=== PATIENT | female | born 1970 | race American Indian/Alaskan Native ===

== ENCOUNTER 2020-10-04 10:21 | Emergency (ER) | payer MEDICAID, OTHER, SELFPAY ==
[2020-10-04 10:23] VITALS: BP 147/76; PULSE 89; RESP 14; TEMP 36.8; O2SAT 96; BMI 28.0
--- NOTE | 2020-10-04 10:28 | DI.RAD.S_ITS ---
PROCEDURE: XR ANKLE RT MIN 3V INDICATIONS: rolled ankle TECHNIQUE: 3 views of the ankle were acquired. COMPARISON: None. FINDINGS: Bones: Fine bone detail is obscured by overlying dressing/splint/cast material. Ankle mortise is normally aligned. No suspicious bony lesions. Soft tissues: No tibiotalar joint effusion. Achilles tendon appears normal. IMPRESSION: Very limited evaluation due to overlying dressing/splint/cast material. No definite trauma found. Proper follow-up plain film imaging today likely should be obtained unless clinically not indicated. Dictated by: Fabien Reyes M.D. on 10/04/2020 at 10:41 Approved by: Fabien Reyes M.D. on 10/04/2020 at 10:43
--- NOTE | 2020-10-04 10:47 | PC.NURSE ---
Pt states she was just seen at the [facility] and was dx with a sprained ankle and was fitted for a gel splint and given crutches. Pt states that her ankle is too painful and the splint is not helping and wants an xray. SLIP COVER SEWER intact distal to injury
--- NOTE | 2020-10-05 10:39 | ED.LOWEXIN ---
HPI - Extremity Injury (Lower) General Chief Complaint: Extremity Injury, Lower Stated Complaint: RT FOOT PAIN, POSS BREAK Time Seen by Provider: 10/04/20 11:04 Source: patient Mode of arrival: Wheelchair Limitations: no limitations History of Present Illness HPI Narrative: 50-year-old woman with a history of recurrent ankle injuries presents after stumbling over uneven ground in her yd and having an inversion injury to the right ankle with significant pain. She comes in with an air splint in place some mild swelling to the ankle in unable to bear weight. Related Data Home Medications Medication Instructions Recorded Confirmed ESOMEPRAZOLE SODIUM (NEXIUM) mg PO QDAY #0 03/06/12 oxycodone 10 mg tablet,crush 10 mg PO #0 03/06/12 resistant,extended release 12 hr (OxyContin) Previous Rx's Medication Instructions Recorded ondansetron 4 mg disintegrating 4 mg SUBLINGUAL Q4HP PRN #15 odt 01/09/ tablet (Zofran ODT) Allergies Allergy/AdvReac Type Severity Reaction Status Date / Time iodine [IODINE] Allergy Severe ANXIETY, Verified 10/04/20 10:28 FLUSHING tramadol [TRAMADOL] Allergy Severe HIVES Verified 10/04/20 10:28 codeine [CODEINE] Allergy Intermediate NAUSEA Verified 10/04/20 10:28 hydromorphone [From DILAUDID] Allergy Intermediate NAUSEA Verified 10/04/20 10:28 meloxicam [From MOBIC] Allergy Intermediate NAUSEA Verified 10/04/20 10:28 Sulfa (Sulfonamide Allergy Intermediate HIVES Verified 10/04/20 10:28 Antibiotics) [SULFA (SULFONAMIDE ANTIBIOTICS)] tetracycline [TETRACYCLINE] Allergy Intermediate NAUSEA Verified 10/04/20 10:28 Review of Systems Review of Systems Narrative: Pertinent positive and negative findings as per HPI Remainder of review of systems is otherwise unremarkable for Constitutional: Fevers, chills, weakness ENT: No sore throat, neck pain, ear pain CV: Chest pain, palpitations, Respiratory: Cough, wheeze, dyspnea GI: Nausea, vomiting, diarrhea, : Dysuria, hematuria, Patient History Social History Smoking Status: Unknown if ever smoked Smoking Status: Unknown if ever smoked alcohol intake frequency: holidays/special occasions only Substance Use Type: marijuana Exam Narrative Exam Narrative: General: Alert appropriate in no acute distress Respiratory: Able to speak in full sentences, no obvious respiratory distress Skin: No obvious rashes, warm and dry Neurologic: Grossly intact no obvious asymmetries or abnormalities Psych: appropriate insight and affect, cooperative Extremity: Some mild tenderness to the lateral aspect of the ankle with some swelling. No ecchymosis, abrasion and no bony point tenderness neurovascularly intact. No tenderness along the fibular head, knee or upper leg. Initial Vital Signs Initial Vital Signs: Vital Signs Temperature 98.3 F 10/04/20 10:23 Pulse Rate 89 10/04/20 10:23 Respiratory Rate 14 10/04/20 10:23 Blood Pressure 147/76 H 10/04/20 10:23 Pulse Oximetry 96 10/04/20 10:23 Procedures Orthopedic Splinting/Casting Right ankle injury: Side: right Lower Extremity Injury Location: ankle Lower Extremity Immobilizer: Blayne wrap Post splinting neuro exam: intact Post splinting vascular exam: intact Placed by: Provider MDM - Extremity Injury (Lower) Imaging Data X-ray ankle: Radiologist's Impression: FINDINGS: Bones: Fine bone detail is obscured by overlying dressing/splint/cast material. Ankle mortise is normally aligned. No suspicious bony lesions. Soft tissues: No tibiotalar joint effusion. Achilles tendon appears normal. IMPRESSION: Very limited evaluation due to overlying dressing/splint/cast material. No definite trauma found. Proper follow-up plain film imaging today likely should be obtained unless clinically not indicated. Dictated by: Fabien Reyes M.D. on 10/04/2020 at 10:41 MDM Narrative Medical decision making narrative: 50-year-old woman with inversion ankle injury no other significant complaints. X-rays are unremarkable. Blayne wrap is applied air splint is reapplied and patient has her own crutches. Recommended Tylenol for pain control elevation and ice. She will follow-up with her primary care provider. She is safe for home discharge Discharge Plan Departure Patient Disposition: Home Clinical Impression: Ankle sprain and strain Instructions: DI for Ankle Sprain Activity Restrictions/Additional Instructions: Thank you for coming in today Your x-ray does not show any broken bones. With the swelling, the pain and the history you clearly have sprained your ankle. I have placed an Blayne wrap on to help with comfort and I would recommend continuing to use the air brace that you have as well as the crutches that you have. Keep the foot elevated, icing can be helpful and Tylenol should help with pain. I hope you heal quickly Prescriptions: No Action ESOMEPRAZOLE SODIUM (NEXIUM) PO QDAY Qty: 0 RF: 0 oxycodone [OxyContin] 10 MG tablet,oral only,ext.rel.12 hr 10 mg PO Qty: 0 RF: 0 ondansetron [Zofran ODT] 4 MG tablet,disintegrating 4 mg Sublingual Q4HP PRNQty: 15 RF: 0 Referrals: Ting Cardozo PA-C [Primary Care Provider] -
== END 2020-10-04 11:34 | disposition home or self-care (01) ==
PROVIDERS: Emergency Provider Emergency Medicine; Family Provider Physician Assistant; PCP Physician Assistant
DX: S93.401A Sprain of unspecified ligament of right ankle, initial encounter (principal); S96.911A Strain of unspecified muscle and tendon at ankle and foot level, right foot, initial encounter; W19.XXXA Unspecified fall, initial encounter
CPT/HCPCS: 73610; 99281; 99283

== ENCOUNTER → 2022-01-07 15:33 | Outpatient (CLI) | payer MEDICAID, OTHER, SELFPAY ==
--- NOTE | 2022-01-07 15:35 | DI.RAD.S_ITS ---
PROCEDURE: XR LUMBAR SPINE 2-3V INDICATIONS: Strain of muscle, fascia and tendon of lower back, subsequen TECHNIQUE: 3 views of the lumbar spine were acquired. COMPARISON: [facility], CT, ABDOMEN/PELVIS WITHOUT CONTRAS, 01/10/2016, 15:46. FINDINGS: Bones: 5 [id number] vertebrae are present. There is normal bony alignment. No vertebral body compression fractures. No suspicious bony lesions. Soft tissues: Overlying bowel gas pattern is normal. No suspicious soft tissue calcifications. Cholecystectomy clips. IMPRESSION: No compression fracture. Dictated by: Matt Mary M.D. on 01/07/2022 at 17:45 Approved by: Matt Mary M.D. on 01/07/2022 at 17:47
--- NOTE | 2022-01-07 15:35 | DI.RAD.S_ITS ---
PROCEDURE: XR THORACIC SPINE 3V INDICATIONS: Strain of muscle, fascia and tendon of lower back, subsequen TECHNIQUE: 3 views of the thoracic spine were acquired. COMPARISON: [facility], , THORACIC SPINE 2 VIEWS, 11/11/2006, 1:04. FINDINGS: Bones: No fractures or dislocations. No suspicious bony lesions. Mild degenerative change in the lower cervical spine is seen. Tiny thoracic spine vertebral body osteophytes. 12 pairs of ribs are noted, and appear intact where visualized. Humerus hardware. Soft tissues: No paravertebral stripe thickening. Cholecystectomy clips. IMPRESSION: Minimal to mild degenerative change in the thoracic spine. Dictated by: Matt Mary M.D. on 01/07/2022 at 17:43 Approved by: Matt Mary M.D. on 01/07/2022 at 17:45
== END ==
PROVIDERS: Family Provider Physician Assistant; PCP Physician Assistant; Referring Provider Family Medicine; Visit Provider Family Medicine
DX: S39.012D Strain of muscle, fascia and tendon of lower back, subsequent encounter (principal); M47.814 Spondylosis without myelopathy or radiculopathy, thoracic region; X58.XXXA Exposure to other specified factors, initial encounter
CPT/HCPCS: 72072; 72100

== ENCOUNTER 2022-02-27 12:13 | Emergency (ER) | payer MEDICAID, OTHER, SELFPAY ==
[2022-02-27 12:20] VITALS: BP 132/73; PULSE 80; RESP 18; TEMP 36.6; O2SAT 98; BMI 29.0
[2022-02-27 12:49] LABS: Add Manual Diff / Slide Review NO; Basophils Absolute Auto 100 /uL (0-100); Basophils Percent Auto 0.9 % (0-2); Eosinophils Absolute Auto 0 /uL (0-450); Eosinophils Percent Auto 0.6 % (2-4); Hemoglobin 14.9 g/dL (12.0-16.0); Lymphocytes Absolute Auto 1800 /uL (1100-4500); Lymphocytes Percent Auto 27.9 % (25-40); Mean Corpuscular HGB Conc 33.1 % (30-36); Mean Corpuscular Volume 87.6 fL (80-100); Monocytes Absolute Auto 500 /uL (0-900); Monocytes Percent Auto 7.6 % (3-14); Neutrophils Absolute Auto 4000 /uL (1500-7000); Platelet Count 297 X10^3/uL (150-400); Red Blood Cell Count 5.14 X10^6/uL (4.0-5.2); Red Cell Distribution Width 13.9 % (11.6-14.8); White Blood Cell Count 6.3 X10^3/uL (4.5-11.0)
--- NOTE | 2022-02-27 12:49 | DI.CT.S_ITS ---
PROCEDURE: CT ABDOMEN PELVIS W CON INDICATIONS: rlq pain TECHNIQUE: After the administration of oral and IV contrast, axial sections were acquired from the lung bases to the pubic symphysis. Coronal and sagittal reformats were performed. For radiation dose reduction, the following was used: automated exposure control, adjustment of mA and/or kV according to patient size. COMPARISON: [facility], CT, ABDOMEN/PELVIS WITH CONTRAST, 03/07/2011, 1:02. FINDINGS: Image quality: Excellent. Lung bases: Unremarkable. Small hiatal hernia. Mild concentric thickening at the gastroesophageal junction. Heart: No significant findings. ABDOMEN: Liver: Mild hepatic steatosis. Liver is normal in size. Gallbladder: Surgically removed. Biliary ducts: Unremarkable. Pancreas: Unremarkable. Spleen: Unremarkable. Adrenal Glands: Unremarkable. Kidneys and Ureters: Normal size and symmetrical enhancement. There is a cortical scar in right kidney. No stones or hydronephrosis. Stomach and Bowel: Appendix is normal. Stomach, small bowel loops, and colon are normal in caliber. There is mild diffuse colonic wall thickening suggesting colitis. Peritoneum: No abnormal intraperitoneal fluid. No free air. Ventral Wall: No hernia. Abdominal Nodes: No retroperitoneal or mesenteric adenopathy by size criteria. Vessels: Aorta and inferior vena cava are normal in size. PELVIS: Pelvic Organs: Normal uterus. No adnexal mass. No pathological free-fluid in pelvis.. Bladder: Unremarkable. Pelvic Nodes: No enlarged lymph nodes. Miscellaneous: No inguinal hernias are seen. Bones: Unremarkable. Mild degenerative disc disease in the lower lumbar spine. IMPRESSION: 1. Normal appendix. 2. Mild diffuse colonic wall thickening consistent with colitis. Etiologies may be inflammatory bowel disease or infection. Recommend clinical correlation and follow-up. 3. Small hiatal hernia. Mild concentric thickening at the gastroesophageal junction may be secondary to chronic gastroesophageal reflux. If clinically indicated, esophagram may be helpful. 4. Hepatic steatosis. Dictated by: Pravin Oscar M.D. on 02/27/2022 at 12:53 Approved by: Pravin Oscar M.D. on 02/27/2022 at 12:59
--- NOTE | 2022-02-27 12:51 | ED.ABDPAIN ---
HPI - Abdominal Pain General Chief Complaint: Abdominal Pain Stated Complaint: poss appendicitis,vominting Time Seen by Provider: 02/27/22 12:49 Source: patient Mode of arrival: Ambulatory History of Present Illness HPI narrative: Patient is a 51-year-old female without pertinent past medical history presenting today with right lower quadrant pain. She says it has been ongoing for the last 4-5 days. It is persistent sharp and stabbing. She thought it was related to her back pain but it does not seem to be rate eating. She has had decrease in appetite. With mild nausea and vomiting. No ongoing back pain. Tender right lower quadrant nonradiating no flank pain. Related Data Home Medications Medication Instructions Recorded Confirmed ESOMEPRAZOLE SODIUM (NEXIUM) mg PO QDAY ##0 03/06/12 oxycodone 10 mg tablet,crush 10 mg PO ##0 03/06/12 resistant,extended release 12 hr (OxyContin) Previous Rx's Medication Instructions Recorded ondansetron 4 mg disintegrating 4 mg sublingual Q4HP PRN ##15 01/10/16 tablet (Zofran ODT) ciprofloxacin HCl 500 mg tablet 500 mg PO BID #14 tabs 02/27/22 (Cipro) hydrocodone 5 mg-acetaminophen 325 1 tab PO Q6H PRN pain #10 tabs 02/27/22 mg tablet metronidazole 500 mg tablet 500 mg PO Q8H 7 days #21 tabs 02/27/22 Allergies Allergy/AdvReac Type Severity Reaction Status Date / Time iodine [IODINE] Allergy Severe ANXIETY, Verified 02/27/22 12:19 FLUSHING tramadol [TRAMADOL] Allergy Severe HIVES Verified 02/27/22 12:19 codeine [CODEINE] Allergy Intermediate NAUSEA Verified 02/27/22 12:19 hydromorphone [From DILAUDID] Allergy Intermediate NAUSEA Verified 02/27/22 12:19 meloxicam [From MOBIC] Allergy Intermediate NAUSEA Verified 02/27/22 12:19 Sulfa (Sulfonamide Allergy Intermediate HIVES Verified 02/27/22 12:19 Antibiotics) [SULFA (SULFONAMIDE ANTIBIOTICS)] tetracycline [TETRACYCLINE] Allergy Intermediate NAUSEA Verified 02/27/22 12:19 ibuprofen AdvReac Verified 02/27/22 12:19 Review of Systems Review of Systems ROS Unobtainable: All systems reviewed & are unremarkable except as noted in HPI and below Patient History Social History Smoking Status: Former smoker Smoking Status: Former smoker alcohol intake frequency: holidays/special occasions only Substance Use Type: marijuana Exam Initial Vital Signs Initial Vital Signs: Vital Signs Temperature 97.9 F 02/27/22 12:20 Pulse Rate 80 02/27/22 12:20 Respiratory Rate 18 02/27/22 12:20 Blood Pressure 132/73 02/27/22 12:20 Pulse Oximetry 98 02/27/22 12:20 Oxygen Delivery Method 02/27/22 12:20 GENERAL: Alert pleasant 51-year-old female appears mildly uncomfortable and in no acute distress. HEENT: Head atraumatic,EOMI, pupils reactive, face symmetric, moist mucous membranes CARDIOVASCULAR: Regular rate and rhythm without murmurs, rubs or gallops. RESPIRATORY: Breath sounds equal bilaterally, no wheezes rales or rhonchi. ABDOMEN: Soft, tender right lower quadrant pain no guarding or rebound no right upper quadrant pain : No CVA tenderness EXTREMITIES: Normal range of motion, no clubbing or edema. Neurovascularly intact NEUROLOGICAL: Alert and oriented x4.N SKIN: Warm, dry, no laceration, no petechiae, no rashes or lesions. Course Orders Ordered: ED Orders 02/27/22 12:26 EKG-12 Lead Stat 02/27/22 12:33 Complete Blood Count AUTO DIFF Stat Comprehensive Metabolic Panel Stat Lactate (Lactic Acid) Stat Lipase Stat 02/27/22 12:49 CT abdomen pelvis w con Stat Discontinued Medications Acetaminophen (Acetaminophen 325 Mg Tablet) 975 mg PO NOW ONE Stop: 02/27/22 13:34 Last Admin: 02/27/22 13:42 Dose: 975 mg Documented By: JULIO Ondansetron HCl (Ondansetron 4 Mg/2 Ml Inj) 4 mg IV NOW PRN PRN Reason: Nausea And Vomiting Last Admin: 02/27/22 13:43 Dose: 4 mg Documented By: JULIO Oxycodone HCl (Oxycodone Ir 5 Mg Tablet) 5 mg PO NOW ONE Stop: 02/27/22 14:20 Last Admin: 02/27/22 14:28 Dose: 5 mg Documented By: JULIO Vital Signs Vital signs: Vital Signs - 8 hr 02/27/22 12:20 02/27/22 13:12 Temperature 97.9 F Pulse Rate 80 77 Respiratory Rate 18 Blood Pressure 132/73 132/75 Pulse Oximetry 98 99 Oxygen Delivery Method Room Air Room Air MDM - Abdominal Pain Lab Data Result diagrams: 02/27/22 12:33 02/27/22 12:33 Labs: Lab Results 02/27/22 02/27/22 02/27/22 Range/Units 12:33 12:33 12:33 WBC 6.3 (4.5-11.0) X10^3/uL RBC 5.14 (4.0-5.2) X10^6/uL Hgb 14.9 (12.0-16.0) g/dL Hct 45.0 (36-46) % MCV 87.6 (80-100) fL MCH 29.0 (26-34) PG MCHC 33.1 (30-36) % RDW 13.9 (11.6-14.8) % Plt Count 297 (150-400) X10^3/uL Neut % (Auto) 63.0 (50-75) % Lymph % (Auto) 27.9 (25-40) % [place] % (Auto) 7.6 (3-14) % Eos % (Auto) 0.6 L (2-4) % Baso % (Auto) 0.9 (0-2) % Neut # (Auto) 4000 (4075-6400) /uL Lymph # (Auto) 1800 (7184-4834) /uL [place] # (Auto) 500 (0-900) /uL Eos # (Auto) 0 (0-450) /uL Baso # (Auto) 100 (0-100) /uL Sodium 142 (137-145) mmol/L Potassium 3.7 (3.4-5.1) mmol/L Chloride 105 (98-107) mmol/L Carbon Dioxide 26 (22-32) mmol/L BUN 12 (7-17) mg/dL Creatinine 0.80 (0.52-1.04) mg/dL Estimated GFR > 60 (>60) mL/min BUN/Creatinine Ratio 15.0 (6-22) Glucose 119 H (70-100) mg/dL Lactate 1.5 (0.7-2.1) mmol/L Calcium 9.4 (8.4-10.2) mg/dL Total Bilirubin 0.7 (0.2-1.3) mg/dL AST 27 (14-36) IU/L ALT 17 (<35) IU/L Alkaline Phosphatase 138 H (38-126) U/L Total Protein 8.4 H (6.3-8.2) g/dL Lipase 206 (23-300) U/L Point of care testing: Urine Dip Bedside Urine Glucose Negative Bedside Urine Bilirubin - Negative Bedside Urine Ketone - Negative Urine Specific [place] 1.015 Bedside Urine Occult Blood - Negative Bedside Urine pH 6.0 Bedside Urine Protein - Negative Bedside Urine Urobilinogen - Negative Bedside Urine Nitrite - Negative Bedside Urine Leukocytes - Negative Esterase Imaging Data CT scan - abdomen/pelvis: Radiologist's Impression: Blane Shetty MR#: [id number] : 1970 Acct:[id number] Age/Sex: 51 / F Date of Service: 02/27/22 Loc: ED Accession Number: [id number] ?? Procedure: CT abdomen pelvis w con Ordering Provider: Ashley Zarco D.O. PROCEDURE:? CT ABDOMEN PELVIS W CON ? INDICATIONS:? rlq pain ? TECHNIQUE:? After the administration of oral and IV contrast, axial sections were acquired from the lung bases to the pubic symphysis.? Coronal and sagittal reformats were performed.? For radiation dose reduction, the following was used:? automated exposure control, adjustment of mA and/or kV according to patient size. ? COMPARISON:? [facility], CT, ABDOMEN/PELVIS WITH CONTRAST, 03/07/2011, 1:02. ? FINDINGS:? Image quality:? Excellent.? ? Lung bases:? Unremarkable.? Small hiatal hernia.? Mild concentric thickening at the gastroesophageal junction. ? Heart:? No significant findings. ? ? ABDOMEN: Liver:? Mild hepatic steatosis.? Liver is normal in size.? ? Gallbladder:? Surgically removed.? ? Biliary ducts:? Unremarkable.? ? Pancreas:? Unremarkable.? ? Spleen:? Unremarkable.? ? Adrenal Glands:? Unremarkable.? ? Kidneys and Ureters:? Normal size and symmetrical enhancement.? There is a cortical scar in right kidney.? No stones or hydronephrosis.? ? ? Stomach and Bowel:? Appendix is normal.? Stomach, small bowel loops, and colon are normal in caliber.? There is mild diffuse colonic wall thickening suggesting colitis. Peritoneum:? No abnormal intraperitoneal fluid.? No free air.? ? Ventral Wall: ? No hernia.? Abdominal Nodes:? No retroperitoneal or mesenteric adenopathy by size criteria.? Vessels:? Aorta and inferior vena cava are normal in size.? ? PELVIS: Pelvic Organs:? Normal uterus.? No adnexal mass.? No pathological free-fluid in pelvis..? ? Bladder:? Unremarkable.? ? Pelvic Nodes: No enlarged lymph nodes.? Miscellaneous: No inguinal hernias are seen. ? ? ? Bones:? Unremarkable.? ? Mild degenerative disc disease in the lower lumbar spine. ? ? IMPRESSION:? ? 1.? Normal appendix. 2. Mild diffuse colonic wall thickening consistent with colitis.? Etiologies may be inflammatory bowel disease or infection.? Recommend clinical correlation and follow-up.? 3. Small hiatal hernia.? Mild concentric thickening at the gastroesophageal junction may be secondary to chronic gastroesophageal reflux.? If clinically indicated, esophagram may be helpful. 4.? Hepatic steatosis.? ? ? Dictated by: Pravin Oscar M.D. on 02/27/2022 at 12:53 ? ? ECG Data Interpretation: Normal sinus rhythm rate 70 OK interval 124 QRS [address] changes no T-wave inversions similar to previous in 2012 MDM Narrative Medical decision making narrative: Patient is a healthy 51-year-old female who presents with ongoing right lower quadrant pain for 3 days. She does not have any leukocytosis or fever but is quite tender on palpation. CT does show colitis inflammatory versus infectious. We did discuss antibiotics versus watchful waiting. At this time patient would like to continue with an antibiotic course along with pain medication. She thinks that she is tolerated hydrocodone before although allergy medication suggest otherwise. She would like to try it again. She thinks it was a combination of previous meds. She is not septic. She overall appears comfortable. She was not given Toradol due to allergy list. She was given 975 mg of Tylenol and then an oxycodone to help with more pain. MDM * differential diagnosis includes but not limited to: Appendicitis diverticulitis bowel obstruction perforation renal stone ovarian torsion, abdominal mass * Prior records reviewed: Previous ED visit ankle sprain * My lab interpretation: See discussion above * My imaging interpretation: CT as above * Clinical Decision Rules/Scores evaluated: None * Independent discussions with: None * Social Considerations: None * Shared Decision Making: in patient * diagnosis: colitis *Disposition: see below, along with detailed discharge instructions that have been reviewed with patient as well as indications for ED re-evaluation and additional outpatient follow up Discharge Plan Departure Patient Disposition: Home Clinical Impression: Colitis Instructions: DI for Colitis Activity Restrictions/Additional Instructions: *You have been diagnosed with colitis *What to do: At this time we will put you on a short course of antibiotics and pain medication. No evidence of appendicitis. Recommend staying hydrated with fluids such as Gatorade or Gatorade like product. May advance diet as tolerated *Continue to take medications as directed --> SENT TO [facility] Cipro 500 mg twice a day for 7 days Flagyl 500 mg 3 times a day for 7 days Hydrocodone 1 tablet every 6 hours if for severe pain. *Follow up with your primary care provider in 2-3 days or call [phone] *Return to ER if you should have increasing pain bloody stools persistent vomiting not tolerating fluids or any new, worsening or concerning symptoms CONTROLLED SUBSTANCE DISCHARGE (Narcotoic/benzodiazepine/Flexeril/Phenergan) 1. You have been prescribed narcotic medications, it does have acetaminophen/Tylenol/paracetamol in it, DO NOT TAKE MORE THAN 4,00mg in 24 hours of Tylenol. TRAMADOL DOES NOT CONTAIN TYLENOL 2. Please understand that we cannot provide further refills of narcotics, benzodiazepines or controlled substances through the ED and her pain management will need to be through your provider. 3. While on these medications you cannot drive or operate heavy machinery. 4. You cannot sign legal documents or perform any duties such as this. 5. As long as you're taking opiate pain medications he should also be taking a stool softener such as Colace, Dulcolax, MiraLAX or prune juice, to help avoid constipation. Prescriptions: New hydrocodone-acetaminophen 5-325 mg tablet 1 tab PO Q6H PRN (Reason: pain) Qty: 10 0RF metronidazole 500 mg tablet 500 mg PO Q8H 7 Days Qty: 21 0RF ciprofloxacin HCl [Cipro] 500 mg tablet 500 mg PO BID Qty: 14 0RF No Action ESOMEPRAZOLE SODIUM (NEXIUM) PO QDAY Qty: 0 oxycodone [OxyContin] 10 MG tablet,oral only,ext.rel.12 hr 10 mg PO Qty: 0 ondansetron [Zofran ODT] 4 MG tablet,disintegrating 4 mg Sublingual Q4HP PRNQty: 15 0RF Referrals: Ting Cardozo PA-C [Primary Care Provider] - Stand Alone Forms: Patient Portal/API
[2022-02-27 12:57] LABS: Alanine Aminotransferase 17 IU/L (<35); Alkaline Phosphatase 138 U/L (38-126); Aspartate Aminotransferase 27 IU/L (14-36); Bilirubin Total 0.7 mg/dL (0.2-1.3); Blood Urea Nitrogen 12 mg/dL (7-17); Calcium 9.4 mg/dL (8.4-10.2); Carbon Dioxide 26 mmol/L (22-32); Chloride 105 mmol/L (98-107); Estimated Glomerular Filt Rate > 60 mL/min (>60); Glucose 119 mg/dL (70-100); Lipase 206 U/L (23-300); Potassium 3.7 mmol/L (3.4-5.1); Sodium 142 mmol/L (137-145); Total Protein 8.4 g/dL (6.3-8.2)
[2022-02-27 13:03] LABS: Lactate (Lactic Acid) 1.5 mmol/L (0.7-2.1)
[2022-02-27 13:12] VITALS: BP 132/75; PULSE 77; O2SAT 99
[2022-02-27] MEDS: ACETAMINOPHEN 325 MG TABLET 975 MG PO (13:42)
[2022-02-27] MEDS: ONDANSETRON 4 MG/2 ML INJ IV (13:43)
[2022-02-27] MEDS: OXYCODONE IR 5 MG TABLET PO (14:28)
[2022-03-01 16:38] LABS: Albumin 4.7 g/dL (3.5-5.0); Albumin Globulin Ratio 1.3 (1.0-2.8); Globulin 3.7 g/dL (1.7-4.1); HEMOLYSIS 15 (0-50)
== END 2022-02-27 14:38 | disposition home or self-care (01) ==
PROVIDERS: Emergency Provider Emergency Medicine; Family Provider Physician Assistant; PCP Physician Assistant
DX: K52.9 Noninfective gastroenteritis and colitis, unspecified (principal); R10.31 Right lower quadrant pain
CPT/HCPCS: 36415; 74177; 80053; 81003; 83605; 83690; 85025; 93005; 96374; 99284; J2405; Q9967

== ENCOUNTER 2022-03-06 10:05 | Emergency (ER) | payer MEDICAID, OTHER, SELFPAY ==
[2022-03-06] VITALS (7 sets, daily range): BP systolic 120–143; BP diastolic 65–93; PULSE 58–98; RESP 15–17; TEMP 36.3; O2SAT 95–98; BMI 30.2
[2022-03-06 10:32] LABS: Add Manual Diff / Slide Review NO; Basophils Absolute Auto 100 /uL (0-100); Eosinophils Absolute Auto 200 /uL (0-450); Eosinophils Percent Auto 2.3 % (2-4); Hematocrit 43.3 % (36-46); Hemoglobin 14.5 g/dL (12.0-16.0); Lymphocytes Absolute Auto 2400 /uL (1100-4500); Mean Corpuscular HGB Conc 33.6 % (30-36); Mean Corpuscular Hemoglobin 29.4 PG (26-34); Mean Corpuscular Volume 87.4 fL (80-100); Monocytes Absolute Auto 800 /uL (0-900); Monocytes Percent Auto 11.2 % (3-14); Neutrophils Absolute Auto 3700 /uL (1500-7000); Neutrophils Percent Auto 51.5 % (50-75); Platelet Count 273 X10^3/uL (150-400); Red Blood Cell Count 4.95 X10^6/uL (4.0-5.2); Red Cell Distribution Width 13.7 % (11.6-14.8); White Blood Cell Count 7.1 X10^3/uL (4.5-11.0)
[2022-03-06 10:39] LABS: Prothrombin Time 11.6 SECONDS (10.1-12.7)
[2022-03-06 10:42] LABS: PTT Partial Thromboplastin Tim 24 SECONDS (26-36)
[2022-03-06 10:43] LABS: Alanine Aminotransferase 17 IU/L (<35); Albumin 4.5 g/dL (3.5-5.0); Albumin Globulin Ratio 1.3 (1.0-2.8); Alkaline Phosphatase 128 U/L (38-126); Aspartate Aminotransferase 31 IU/L (14-36); BUN Creatinine Ratio 15.9 (6-22); Bilirubin Total 0.8 mg/dL (0.2-1.3); Blood Urea Nitrogen 13 mg/dL (7-17); Calcium 8.6 mg/dL (8.4-10.2); Carbon Dioxide 25 mmol/L (22-32); Chloride 102 mmol/L (98-107); Estimated Glomerular Filt Rate > 60 mL/min (>60); Globulin 3.4 g/dL (1.7-4.1); Glucose 106 mg/dL (70-100); HEMOLYSIS < 15 (0-50); Potassium 3.5 mmol/L (3.4-5.1); Sodium 140 mmol/L (137-145); Total Protein 7.9 g/dL (6.3-8.2)
[2022-03-06] MEDS: ONDANSETRON 4 MG/2 ML INJ IV (12:00)
[2022-03-06] MEDS: PANTOPRAZOLE 40 MG VIAL 80 MG IV (12:00)
--- NOTE | 2022-03-06 12:15 | DI.CT.S_ITS ---
PROCEDURE: CT ABDOMEN PELVIS W CON INDICATIONS: IV contrast only/epigastric/right side pain TECHNIQUE: After the administration of intravenous contrast, axial sections acquired from the lung bases to the pubic symphysis. Coronal and sagittal reformats were performed. For radiation dose reduction, the following was used: automated exposure control, adjustment of mA and/or kV according to patient size. COMPARISON: [facility], CT, CT ABDOMEN PELVIS W CON, 02/27/2022, 13:01. FINDINGS: Image quality: Good Lower chest: Moderate hiatal hernia, with distal esophageal fluid which may be from reflux. Solid organs: Possible hepatic steatosis. Cholecystectomy. No pathologic dilation of the pancreatic duct. Stable prominent biliary tree post cholecystectomy. No splenomegaly. No adrenal nodules. Cortical scarring in the right kidney as before. No hydronephrosis. Vessels and lymph nodes: Main portal vein is patent. No abdominal aortic aneurysm or pathologic adenopathy. Bowel and peritoneum: No small bowel obstruction. Moderate colorectal stool burden. Somewhat partially liquid colonic contents. Normal appendix. Mild fat stranding and around the cecum and terminal ileum. Body wall: Unremarkable Pelvis: Unremarkable appearance of the reproductive organs on limited CT evaluation. Bladder is unremarkable. Bones: No acute or suspicious osseous abnormality. Scattered degenerative changes. IMPRESSION: Moderate hiatal hernia and suspected distal esophageal reflux disease. Please correlate with endoscop if necessary, as these findings are not well evaluated on CT and only partially visualized. Possible mild infectious or inflammatory proximal colitis and distal ileitis. Partially liquid colonic contents, correlate for diarrhea. Other findings as above. No acute abdominopelvic pathology otherwise. Dictated by: Herbert Azevedo M.D. on 03/06/2022 at 13:31 Approved by: Herbert Azevedo M.D. on 03/06/2022 at 13:36
--- NOTE | 2022-03-06 12:16 | ED.GIBLEED ---
HPI - GI Bleed General Chief complaint: GI Bleed Stated complaint: throwing up dark,black liquid Time Seen by Provider: 03/06/22 12:06 Source: patient Mode of arrival: Ambulatory History of Present Illness HPI Narrative: Patient brought here by from home. Complains of worsening epigastric right-sided abdominal pain since being seen here [address] on that day showed colitis and thickening of the GE junction. Patient has had coffee-ground emesis after eating. No diarrhea no black or bloody stools. No fever or chills. Patient has had morphine in the past for pain control without allergy symptoms. Denies any chest pain or back pain. No syncope no dizziness no dyspnea. Related Data Home Medications Medication Instructions Recorded Confirmed ESOMEPRAZOLE SODIUM (NEXIUM) mg PO QDAY ##0 03/06/12 oxycodone 10 mg tablet,crush 10 mg PO ##0 03/06/12 resistant,extended release 12 hr (OxyContin) Previous Rx's Medication Instructions Recorded ondansetron 4 mg disintegrating 4 mg sublingual Q4HP PRN ##15 01/10/16 tablet (Zofran ODT) ciprofloxacin HCl 500 mg tablet 500 mg PO BID #14 tabs 02/27/22 (Cipro) hydrocodone 5 mg-acetaminophen 325 1 tab PO Q6H PRN pain #10 tabs 02/27/22 mg tablet hydrocodone 5 mg-acetaminophen 325 1 tab PO Q6H PRN pain #12 tabs 03/06/22 mg tablet ondansetron 4 mg disintegrating 4 mg PO Q8H PRN nausea and 03/06/22 tablet vomiting #15 tabs pantoprazole 40 mg tablet,delayed 40 mg PO DAILY #30 tabs 03/06/22 release (Protonix) peg 3350-electrolytes 236 240 ml PO Q10M #4,000 mL 03/12/22 gram-22.74 gram-6.74 gram-5.86 gram solution (Golytely) Allergies Allergy/AdvReac Type Severity Reaction Status Date / Time iodine [IODINE] Allergy Severe ANXIETY, Verified 03/06/22 10:10 FLUSHING tramadol [TRAMADOL] Allergy Severe HIVES Verified 03/06/22 10:10 codeine [CODEINE] Allergy Intermediate NAUSEA Verified 03/06/22 10:10 hydromorphone [From DILAUDID] Allergy Intermediate NAUSEA Verified 03/06/22 10:10 meloxicam [From MOBIC] Allergy Intermediate NAUSEA Verified 03/06/22 10:10 Sulfa (Sulfonamide Allergy Intermediate HIVES Verified 03/06/22 10:10 Antibiotics) [SULFA (SULFONAMIDE ANTIBIOTICS)] tetracycline [TETRACYCLINE] Allergy Intermediate NAUSEA Verified 03/06/22 10:10 ibuprofen AdvReac Verified 03/06/22 10:10 Review of Systems Review of Systems Narrative: GENERAL: negative chills, fatigue, malaise, fever, sweats. HEENT: negative sinus pain, ear pain, sore throat RESPIRATORY: negative dyspnea, cough CARDIOVASCULAR: negative chest pain, palpitations GASTROINTESTINAL: Positive hematemesis nausea, vomiting, abdominal pain, negative black or bloody stool : negative dysuria, frequency, hematuria MUSCULOSKELETAL: negative muscle or bony pain SKIN: negative rash, skin lesions NEUROLOGIC: negative weakness, numbness ROS Unobtainable: All systems reviewed & are unremarkable except as noted in HPI and below Patient History Social History Smoking Status: Former smoker Smoking Status: Former smoker alcohol intake frequency: holidays/special occasions only Substance Use Type: marijuana Exam Narrative Exam Narrative: GENERAL: in no distress, not toxic not dyspneic HEAD: Normocephalic. EYES: Pupils equal round ENT: Mucous membranes moist. NECK: Trachea midline. CARDIOVASCULAR: Regular rate and rhythm without murmurs RESPIRATORY: Clear to auscultation. Breath sounds equal bilaterally. No wheezes, rales, or rhonchi. GASTROINTESTINAL: Abdomen soft, reproducible epigastric right side abdominal tenderness no peritoneal signs bowel sounds are present. No pain out of proportion to exam EXTREMITIES: No gross deformities. BACK: No flank tenderness. NEURO: AOx4. SKIN: Warm and dry PSYCH: Not anxious, is cooperative Initial Vital Signs Initial Vital Signs: Vital Signs Temperature 97.3 F L 03/06/22 10:10 Pulse Rate 81 03/06/22 10:10 Respiratory Rate 15 03/06/22 10:10 Blood Pressure 143/93 H 03/06/22 10:10 Pulse Oximetry 98 03/06/22 10:10 Oxygen Delivery Method 03/06/22 10:10 Course Orders Ordered: Discontinued Medications Sodium Chloride (Normal Saline 0.9%) 500 mls @ 1,000 mls/hr IV BOLUS ONE Stop: 03/06/22 12:44 Last Infusion: 03/06/22 15:51 Dose: 0 mls/hr Documented By: Admin: 03/06/22 12:25 Dose: 1,000 mls/hr Documented By: WEDNY Morphine Sulfate (Morphine 4 Mg/Ml Inj) 4 mg IV NOW ONE Stop: 03/06/22 12:16 Last Admin: 03/06/22 12:24 Dose: 4 mg Documented By: WENDY Ondansetron HCl (Ondansetron 4 Mg/2 Ml Inj) 4 mg IV NOW PRN PRN Reason: Nausea And Vomiting Last Admin: 03/06/22 12:00 Dose: 4 mg Documented By: JOEY Ondansetron HCl (Ondansetron 4 Mg/2 Ml Inj) 4 mg IV NOW ONE Stop: 03/06/22 12:16 Last Admin: 03/06/22 15:54 Dose: Not Given Documented By: WENDY Pantoprazole Sodium (Pantoprazole 40 Mg Vial) 80 mg IV NOW ONE Stop: 03/06/22 10:14 Last Admin: 03/06/22 12:00 Dose: 80 mg Documented By: JOEY Vital Signs Vital signs: Vital Signs - 8 hr 03/06/22 10:10 03/06/22 13:46 03/06/22 13:47 Temperature 97.3 F L Pulse Rate 81 98 H Respiratory Rate 15 Blood Pressure 143/93 H 122/68 Pulse Oximetry 98 96 Oxygen Delivery Method Room Air 03/06/22 13:47 03/06/22 14:00 03/06/22 14:00 Temperature Pulse Rate 80 67 Respiratory Rate Blood Pressure 120/65 Pulse Oximetry 97 95 Oxygen Delivery Method 03/06/22 14:30 03/06/22 14:30 03/06/22 14:55 Temperature Pulse Rate 64 Respiratory Rate 17 Blood Pressure 123/71 Pulse Oximetry 97 Oxygen Delivery Method MDM - GI Bleed Lab Data 03/06/22 10:18 03/06/22 10:18 Labs: Lab Results 03/06/22 03/06/22 03/06/22 Range/Units 10:18 10:18 10:18 WBC 7.1 (4.5-11.0) X10^3/uL RBC 4.95 (4.0-5.2) X10^6/uL Hgb 14.5 (12.0-16.0) g/dL Hct 43.3 (36-46) % MCV 87.4 (80-100) fL MCH 29.4 (26-34) PG MCHC 33.6 (30-36) % RDW 13.7 (11.6-14.8) % Plt Count 273 (150-400) X10^3/uL Neut % (Auto) 51.5 (50-75) % Lymph % (Auto) 34.0 (25-40) % [place] % (Auto) 11.2 (3-14) % Eos % (Auto) 2.3 (2-4) % Baso % (Auto) 1.0 (0-2) % Neut # (Auto) 3700 (5516-4180) /uL Lymph # (Auto) 2400 (7388-0552) /uL [place] # (Auto) 800 (0-900) /uL Eos # (Auto) 200 (0-450) /uL Baso # (Auto) 100 (0-100) /uL PT 11.6 (10.1-12.7) SECONDS INR 1.0 (0.9-1.3) APTT 24 L (26-36) SECONDS Sodium 140 (137-145) mmol/L Potassium 3.5 (3.4-5.1) mmol/L Chloride 102 (98-107) mmol/L Carbon Dioxide 25 (22-32) mmol/L BUN 13 (7-17) mg/dL Creatinine 0.82 (0.52-1.04) mg/dL Estimated GFR > 60 (>60) mL/min BUN/Creatinine Ratio 15.9 (6-22) Glucose 106 H (70-100) mg/dL Calcium 8.6 (8.4-10.2) mg/dL Total Bilirubin 0.8 (0.2-1.3) mg/dL AST 31 (14-36) IU/L ALT 17 (<35) IU/L Alkaline Phosphatase 128 H (38-126) U/L Total Protein 7.9 (6.3-8.2) g/dL Albumin 4.5 (3.5-5.0) g/dL Globulin 3.4 (1.7-4.1) g/dL Albumin/Globulin Ratio 1.3 (1.0-2.8) Blood Type Antibody Screen 03/06/22 Range/Units 10:18 WBC (4.5-11.0) X10^3/uL RBC (4.0-5.2) X10^6/uL Hgb (12.0-16.0) g/dL Hct (36-46) % MCV (80-100) fL MCH (26-34) PG MCHC (30-36) % RDW (11.6-14.8) % Plt Count (150-400) X10^3/uL Neut % (Auto) (50-75) % Lymph % (Auto) (25-40) % [place] % (Auto) (3-14) % Eos % (Auto) (2-4) % Baso % (Auto) (0-2) % Neut # (Auto) (6579-1691) /uL Lymph # (Auto) (0435-3238) /uL [place] # (Auto) (0-900) /uL Eos # (Auto) (0-450) /uL Baso # (Auto) (0-100) /uL PT (10.1-12.7) SECONDS INR (0.9-1.3) APTT (26-36) SECONDS Sodium (137-145) mmol/L Potassium (3.4-5.1) mmol/L Chloride (98-107) mmol/L Carbon Dioxide (22-32) mmol/L BUN (7-17) mg/dL Creatinine (0.52-1.04) mg/dL Estimated GFR (>60) mL/min BUN/Creatinine Ratio (6-22) Glucose (70-100) mg/dL Calcium (8.4-10.2) mg/dL Total Bilirubin (0.2-1.3) mg/dL AST (14-36) IU/L ALT (<35) IU/L Alkaline Phosphatase (38-126) U/L Total Protein (6.3-8.2) g/dL Albumin (3.5-5.0) g/dL Globulin (1.7-4.1) g/dL Albumin/Globulin Ratio (1.0-2.8) Blood Type O Positive Antibody Screen Negative Urine Dip Bedside Urine Glucose Negative Bedside Urine Bilirubin - Negative Bedside Urine Ketone - Negative Urine Specific [place] 1.01 Bedside Urine Occult Blood - Negative Bedside Urine pH 6.0 Bedside Urine Protein - Negative Bedside Urine Urobilinogen - Negative Bedside Urine Nitrite - Negative Bedside Urine Leukocytes - Negative Esterase Imaging Data CT scan - abdomen/pelvis: Radiologist's Impression: [address] [address] [address] Scan Report Signed Patient: Blane Shetty MR#: [id number] : 1970 Acct:[id number] Age/Sex: 51 / F Date of Service: 03/06/22 Loc: ED Accession Number: [id number] ?? Procedure: CT abdomen pelvis w con Ordering Provider: Vini Levy MD PROCEDURE:? CT ABDOMEN PELVIS W CON ? INDICATIONS:? IV contrast only/epigastric/right side pain ? TECHNIQUE:? After the administration of intravenous contrast, axial sections acquired from the lung bases to the pubic symphysis.? Coronal and sagittal reformats were performed.? For radiation dose reduction, the following was used:? automated exposure control, adjustment of mA and/or kV according to patient size.? ? COMPARISON:? [facility], CT, CT ABDOMEN PELVIS W CON, 02/27/2022, 13:01. ? FINDINGS:? Image quality:? Good ? Lower chest:? Moderate hiatal hernia, with distal esophageal fluid which may be from reflux. ? Solid organs:? Possible hepatic steatosis.? Cholecystectomy.? No pathologic dilation of the pancreatic duct.? Stable prominent biliary tree post cholecystectomy.? No splenomegaly.? No adrenal nodules.? Cortical scarring in the right kidney as before.? No hydronephrosis. ? Vessels and lymph nodes:? Main portal vein is patent.? No abdominal aortic aneurysm or pathologic adenopathy. ? Bowel and peritoneum:? No small bowel obstruction.? Moderate colorectal stool burden.? Somewhat partially liquid colonic contents.? Normal appendix.? Mild fat stranding and around the cecum and terminal ileum. ? Body wall:? Unremarkable ? Pelvis:? Unremarkable appearance of the reproductive organs on limited CT evaluation.? Bladder is unremarkable. ? Bones:? No acute or suspicious osseous abnormality.? Scattered degenerative changes. ? IMPRESSION:? Moderate hiatal hernia and suspected distal esophageal reflux disease.? Please correlate with endoscop if necessary, as these findings are not well evaluated on CT and only partially visualized. Possible mild infectious or inflammatory proximal colitis and distal ileitis.? Partially liquid colonic contents, correlate for diarrhea. ? Other findings as above.? No acute abdominopelvic pathology otherwise.? ? Dictated by: Herbert Azevedo M.D. on 03/06/2022 at 13:31 ? ? Approved by: Herbert Azevedo M.D. on 03/06/2022 at 13:36 ? [facility] Narrative Medical decision making narrative: Patient brought here by from home. Complains of worsening epigastric right-sided abdominal pain since being seen here [address] on that day showed colitis and thickening of the GE junction. Patient has had coffee-ground emesis after eating. No diarrhea no black or bloody stools. No fever or chills. Patient has had morphine in the past for pain control without allergy symptoms. Denies any chest pain or back pain. No syncope no dizziness no dyspnea. After exam evaluation and history, CBC CMP type and screen morphine Zofran CT abdomen pelvis IV fluids were ordered [facility] CC: Abdominal pain/hematemesis Complicating co-morbidities: History of colitis Data collected from: Patient and Medical records reviewed: Visit here emergency department 7 days ago, CT reviewed, prescribed Cipro and Flagyl and hydrocodone Differential considered: Includes but not limited to perforated viscus/gastritis/diverticulitis/colitis/abdominal abscess/diverticulosis Exam documented above, pertinent findings include: Epigastric tenderness Lab Test results independently reviewed as above. Pertinent findings: CBC without anemia, normal platelets, no leukocytosis. CMP no elevated BUN. Independently reviewed EKG as above Imaging studies independently reviewed: Moderate hiatal hernia and suspected distal esophageal reflux disease. Correlate with endoscopy if necessary. Possible mild infectious or inflammatory proximal colitis and distal ileitis. Consultations: 3:[address] Cruz, general surgeon. Patient can be discharged home and follow up with him for outpatient scheduled for EGD and colonoscopy. Agrees to start with Protonix. Likely Heather-Nix tear causing patient's hematemesis. However hemodynamically stable and hemoglobin levels are stable in the last 7 days. Treatments: Morphine Zofran normal saline Re-evaluations: For p.m.. Spoke with patient and . Pain is much better after morphine. Patient has been given Protonix as well. Reviewed laboratory studies and imaging with patient. They do agree and understand for discharge home and follow up with Dr. Cruz for endoscopy. They are comfortable with plan. They do understand source of hematemesis likely Heather-Nix/GE junction abnormality Discussion: Appropriate for discharge home. Exam and laboratory studies and imaging are reassuring. I did speak with General surgery for follow up appropriately for EGD and colonoscopy. Pain is controlled. Hemodynamically stable. No hypotension or tachycardia. Patient only has hematemesis after eating. They will continue liquid diet. I will provided refill for pain medication and start Protonix. Return precautions reviewed with patient and and they do understand and agree and desire discharge home Diagnosis: Hematemesis Discharge Plan Departure Patient Disposition: Home Clinical Impression: Hiatal hernia without gangrene and obstruction, Heather-Nix syndrome, Gastritis Instructions: DI for Hiatal Hernia, Gastrointestinal Bleeding Activity Restrictions/Additional Instructions: No driving or operating machinery today or when taking prescribed pain medication. Paste call Dr. Cruz office tomorrow to schedule appointment for procedure/endoscopy of your stomach as well as colonoscopy. Please continue liquid diet as you have been. No solid foods. Encourage broth/soups/jello. Return if worse if any questions or concerns or if increased bleeding or black or bloody stools or any dizziness or fainting. Prescription for Protonix has been provided as well Prescriptions: New hydrocodone-acetaminophen 5-325 mg tablet 1 tab PO Q6H PRN (Reason: pain) Qty: 12 0RF pantoprazole [Protonix] 40 mg tablet,delayed release (DR/EC) 40 mg PO DAILY Qty: 30 0RF ondansetron 4 mg tablet,disintegrating 4 mg PO Q8H PRN (Reason: nausea and vomiting) Qty: 15 0RF No Action ESOMEPRAZOLE SODIUM (NEXIUM) PO QDAY Qty: 0 oxycodone [OxyContin] 10 MG tablet,oral only,ext.rel.12 hr 10 mg PO Qty: 0 ondansetron [Zofran ODT] 4 MG tablet,disintegrating 4 mg Sublingual Q4HP PRNQty: 15 0RF peg 3350-electrolytes [Golytely] 236-22.74-6.74 -5.86 gram recon soln 240 ml PO Q10M Qty: 4000 0RF Rx Instructions: Take as directed by Physician hydrocodone-acetaminophen 5-325 mg tablet 1 tab PO Q6H PRN (Reason: pain) Qty: 10 0RF ciprofloxacin HCl [Cipro] 500 mg tablet 500 mg PO BID Qty: 14 0RF Referrals: Sam Cruz MD [Physician] - Ting Cardozo PA-C [Primary Care Provider] - Stand Alone Forms: Patient Portal/API
[2022-03-06] MEDS: MORPHINE 4 MG/ML INJ IV (12:24)
[2022-03-06] MEDS: SODIUM CHLORIDE 0.9% 500 ML 1000 ML IV (12:25)
== END 2022-03-06 16:15 | disposition home or self-care (01) ==
PROVIDERS: Emergency Provider Emergency Medicine; Family Provider Physician Assistant; PCP Physician Assistant
DX: K44.9 Diaphragmatic hernia without obstruction or gangrene (principal); K22.6 Gastro-esophageal laceration-hemorrhage syndrome; K29.70 Gastritis, unspecified, without bleeding
CPT/HCPCS: 36415; 74177; 80053; 81003; 85025; 85610; 85730; 86850; 86900; 86901; 96374; 96375; 99284; C9113; J2270; J2405; Q9967

== ENCOUNTER → 2022-03-22 15:00 | Outpatient (CLI) | payer MEDICAID, OTHER, SELFPAY ==
--- NOTE | 2022-03-22 15:03 | DI.MRI.S_ITS ---
PROCEDURE: MR LUMBAR SPINE WO CON INDICATIONS: Lumbago with sciatica, right side TECHNIQUE: Noncontrast sagittal T1 spin echo and T2 fast echo, sagittal STIR, and T2 fast spin echo through the lumbar spine. In cases with scoliosis, additional coronal T2 fast spin echo may be performed. COMPARISON: [facility], CT, CT ABDOMEN PELVIS W CON, 03/06/2022, 13:02. FINDINGS: Image quality: Excellent. Alignment and Curvature: There is normal bony alignment. Bone Marrow: Marrow is of normal overall signal. No acute vertebral body compression fractures. Spinal Cord: Conus medullaris terminates at the L1 level. Visualized cord demonstrates normal signal and size. Paraspinous Soft Tissues: No paravertebral masses. T12-L1: Normal appearance. L1-L2: Normal appearance. L2-L3: The disc height is well-preserved. Loss of disc signal is seen at this level. Mild generalized disc bulge is seen. There is a superimposed central disc protrusion. There is a focal annular fissure seen posteriorly. No significant neural foraminal or central canal narrowing can be seen. L3-L4: Mild loss of disc height is seen. Loss of disc signal is seen. Mild to moderate disc bulge is seen, with a mild central disc protrusion. There is a focal annular fissure seen posteriorly. Mild facet joint hypertrophy is seen. There is guvy-uk-gtjwamxn left-sided and minimal right-sided neural foraminal narrowing. Mild central canal narrowing is seen. L4-L5: Moderate loss of disc height is seen. Loss of disc signal is seen. Moderate disc bulge is seen, which is eccentric to the right. There is a superimposed central disc protrusion. Mild facet joint hypertrophy is seen. No significant neural foraminal narrowing can be seen. Mild central canal narrowing is seen. L5-S1: Ohzu-dt-[id number] loss of disc height and disc signal can be seen. Mild disc bulge is seen, which is eccentric to the right. There is a focal annular fissure seen posteriorly. Mild facet joint hypertrophy is seen. There is yrhc-yh-[id number] right-sided and no left-sided neural foraminal narrowing. No significant central canal narrowing is seen. IMPRESSION: Multiple levels of lumbar spine degenerative change can be seen. Dictated by: Lyle Condon M.D. on 03/22/2022 at 15:44 Approved by: Lyle Condon M.D. on 03/22/2022 at 15:48
== END ==
PROVIDERS: Family Provider Physician Assistant; PCP Physician Assistant; Referring Provider Family Medicine; Visit Provider Family Medicine
DX: M47.816 Spondylosis without myelopathy or radiculopathy, lumbar region (principal); M47.817 Spondylosis without myelopathy or radiculopathy, lumbosacral region; M54.41 Lumbago with sciatica, right side
CPT/HCPCS: 72148

== ENCOUNTER 2022-03-26 08:42 | Day surgery (SDC) | payer MEDICAID, OTHER, SELFPAY ==
--- NOTE | 2022-03-26 | PATH_ITS ---
[facility] Accession Number: [id number] No. of containers..03 Tissue . 01 Material submitted: . PART A: esophagus - DISTAL ESOPHAGUS BIOPSY PART B: colon - DESCENDING COLON POLYP 50CM PART C: rectum - RECTAL BIOPSY . 01 Diagnosis: A. Distal Esophagus, Biopsy: Proximal gastric type mucosa with specialized intestinal metaplasia; please see comment. Negative for dysplasia or malignancy. . B. Descending Colon Polyp At 50 cm: Tubular adenoma. . C. Rectum, Biopsy: Colonic mucosa with focal mucosal hyperplasia. Negative for active or microscopic colitis. Negative for granulomas, dysplaisa or malignancy. [facility] 04/01/2022 1133 Local . 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 . 01 Electronically signed: . Henry Montelongo MD, PhD, Pathologist NPI- [id number] . 01 Gross description: . Part A: DISTAL ESOPHAGUS BIOPSY: Received in formalin is 1 fragment(s) of valadez, soft tissue measuring 0.3 x 0.3 x 0.2 cm submitted entirely in 1 cassette(s) Part B: DESCENDING COLON POLYP 50CM: Received in formalin are multiple fragment(s) of valadez, soft tissue measuring 0.1 x 0.1 x 0.1 cm to 0.6 x 0.4 x 0.4 cm submitted entirely in 1 cassette(s) Part C: RECTAL BIOPSY: Received in formalin are 2 fragment(s) of valadez, soft tissue measuring 0.1 x 0.1 x 0.1 cm in aggregate submitted entirely in 1 cassette(s) /BONITA 03/27/2022 1905 Local . 01 Pathologist provided ICD-10: K92.0, K22.70, D12.4 . 01 CPT . 792814, 115464, 844005 Specimen Comment: A courtesy copy of this report has been sent to [phone] Performed at: 01 [facility] [address] [place] [address] [id number] MD Candido Pardo MD Phone: [phone]
[2022-03-26] MEDS: LACTATED RINGERS 1,000 ML 200 ML IV (08:59)
[2022-03-26 09:05] VITALS: BP 121/78; PULSE 83; RESP 17; TEMP 36.4; O2SAT 97; BMI 29.0
--- NOTE | 2022-03-26 10:03 | P.HP_ITS ---
History of Present Illness History of Present Illness Date Patient Seen: 03/26/22 Chief complaint: EGD and Colonoscopy Narrative: 51-year-old woman with recent episode gastritis and colitis here for diagnostic esophagoduodenoscopy and colonoscopy. She presented to the emergency room Brian [email or web address] with complaint of abdominal pain and hematemesis with coffee-ground emesis. CT abdomen pelvis performed demonstrates gastric thickening as well as concentric thickening of the GE junction in addition to colitis. She is been taking ciprofloxacin and Flagyl in addition to Nexium for the past several weeks with improvement but not resolution of her abdominal pain. No prior peptic ulcer disease. She is not taking aspirin or anticoagulation.. No blood per rectum no unintentional weight loss. She thinks she had a prior colonoscopy approximately 10 years ago which was normal. No personal or family history of intestinal malignancy. Patient History Family & Social History Social History: household members significant other Tobacco & Substance use: Smoking Status Former smoker alcohol intake current alcohol intake frequency other Substance Use Type marijuana Meds Home Medications and Allergies Home Medications Medication Instructions Recorded Confirmed Type ESOMEPRAZOLE SODIUM (NEXIUM) 20 mg PO QDAY ##0 03/06/12 History ondansetron 4 mg disintegrating 4 mg sublingual Q4HP PRN ##15 01/10/16 Rx tablet (Zofran ODT) ondansetron 4 mg disintegrating 4 mg PO Q8H PRN nausea and 03/06/22 Rx tablet vomiting #15 tabs pantoprazole 40 mg tablet,delayed 40 mg PO DAILY #30 tabs 03/06/22 Rx release (Protonix) peg 3350-electrolytes 236 240 ml PO Q10M #4,000 mL 03/12/22 Rx gram-22.74 gram-6.74 gram-5.86 gram solution (Golytely) Allergies Allergy/AdvReac Type Severity Reaction Status Date / Time meloxicam [From MOBIC] Allergy Intermediate NAUSEA Verified 03/06/22 10:10 Sulfa (Sulfonamide Allergy Intermediate HIVES, Verified 03/26/22 09:02 Antibiotics) NAUSEA [SULFA (SULFONAMIDE ANTIBIOTICS)] tetracycline [TETRACYCLINE] Allergy Intermediate NAUSEA Verified 03/06/22 10:10 iodine Allergy Mild Nausea Verified 03/26/22 09:02 hydromorphone [From Dilaudid] Allergy Nausea Verified 03/26/22 09:02 ibuprofen AdvReac Mild Nausea Verified 03/26/22 09:02 Exam Vital Signs (past 8 hours): - 03/26/22 09:05 Temperature 97.5 F L Pulse Rate 83 Respiratory Rate 17 Blood Pressure 121/78 Pulse Oximetry 97 Oxygen Delivery Method Room Air Oxygen Delivery Method Room Air Narrative Exam Narrative: General adult woman alert oriented no acute distress Abdomen mildly tender epigastric. Assessment & Plan Assessment and plan (1) Colitis: Status: Acute (2) Gastritis: Status: Acute Assessment & Plan narrative: 51-year-old woman with new gastritis and colitis not responding adequately to PPI and antibiotic therapy here for diagnostic EGD and colonoscopy. Technical details were discussed. Risks, benefits, alternatives explained. Risks including but not limited to myocardial infarction, aspiration, bleeding, pain, missed lesion, incomplete examination, need for further radiographic studies, colonic perforation, and need for major abdominal surgery were discussed. All questions were answered to their satisfaction, and they are in agreement with this plan. Time Spent With Patient Critical Care time: I spent a total of [] minutes of critical care time on this patient's care today; this time is exclusive of procedural time.
--- NOTE | 2022-03-26 10:46 | P.OP.EGD&C_ITS ---
Operative Date/Time/Diagnoses Date of procedure: 03/26/22 Time of procedure: 10:47 Pre-op diagnosis: Gastritis, colitis Post-op diagnosis: other (Esophagitis, colonic polyps x2) Procedure & Clinicians Study performed: Esophagoduodenoscopy and colonoscopy Same procedure as scheduled: Yes Indications: 51-year-old woman with recent episode of epigastric abdominal pain with coffee- ground emesis found to have gastritis and colitis on CT abdomen pelvis Surgeon: Sam Cruz Procedure Notes Procedure in detail: The history and physical was performed/updated and the patient is ASA class is 2. The procedure was discussed in detail with the patient. Potential risks complications including infection, bleeding, missed diagnosis, perforation, need for surgery, and were explained. Their questions were answered and informed consent was obtained. Patient placed in left lateral decubitus position. Time out was performed. Procedural sedation was administered by anesthesia. A bite block was placed. the scope was inserted into the mouth and advanced through the esophagus and into the stomach. The distal esophagus was notable for mild esophagitis. Biopsy of the distal esophagus was performed in several locations using the biopsy forceps. The stomach was entered and was normal in its appearance with the exception of a small hiatal hernia. The pylorus was intubated and the duodenum was normal to the 2nd portion. scope was withdrawn into the esophagus the Z line was seen at 35 cm from the incisions. Stomach was desufflated and scope removed. Examination began with a thorough inspection of the perianal area there was no evidence of fissures, fistulae, external hemorrhoids or cutaneous malignancy. The colonoscopy scope was then placed into the anal canal and was advanced to the cecum, which was identified by the ileocecal valve, the appendiceal orifice and the confluence of the taenia. The scope was then slowly withdrawn examining colon thoroughly in all directions, irrigating it of any residual stool. Within the descending colon colon at 50 cm from the anal verge there was a 8 mm polyp which was removed with cold snare. In the rectum there was a 5 mm polyp which was removed with cold snare. The patient tolerated the procedure well. They will be discharged once criteria are met. The prep was of good/excellent quality. The withdrawl time was 8 minutes. Specimen(s): other (Distal esophagus, descending colon polyp, rectal polyp) Complications: none Impression: Esophagitis, colonic polyps x2 Post-procedure Recommendations: High fiber diet Plan for aftercare: Continue Nexium for the next 1 month then okay to discontinue. Follow-up for colonic polyps as dependent on pathology findings Disposition: same day surgery
[2022-03-26 10:49] VITALS: BP 118/86; PULSE 72; RESP 13; TEMP 36.4; O2SAT 100
[2022-03-26 10:57] VITALS: BP 133/89; PULSE 55; RESP 23; O2SAT 95
[2022-03-26 11:01] VITALS: BP 142/91; PULSE 66; RESP 17; TEMP 36.4; O2SAT 100
[2022-03-26 11:04] VITALS: BP 143/96; PULSE 73; RESP 15; O2SAT 100
== END 2022-03-26 11:35 | disposition home or self-care (01) ==
PROVIDERS: Family Provider Physician Assistant; PCP Physician Assistant; Referring Provider Surgery; Visit Provider Surgery
PROC: 0DJ08ZZ Inspection of Upper Intestinal Tract, Via Natural or Artificial Opening Endoscopic (ICD-10-PCS; CPT 43235; principal; 2022-03-26 09:45)
PROC: 0DJD8ZZ Inspection of Lower Intestinal Tract, Via Natural or Artificial Opening Endoscopic (ICD-10-PCS; CPT 45378; 2022-03-26 09:45)
DX: K52.9 Noninfective gastroenteritis and colitis, unspecified (principal); K29.70 Gastritis, unspecified, without bleeding; D12.4 Benign neoplasm of descending colon; K22.70 Barrett's esophagus without dysplasia
CPT/HCPCS: 45385; 43239; J2704

== ENCOUNTER 2022-05-23 17:31 | Emergency (ER) | payer MEDICAID, OTHER, SELFPAY ==
--- NOTE | 2022-05-23 17:27 | ED_ITS ---
HPI - Head Injury <Adilene Sanders Amandasudhir, [facility] - Last Filed: 05/23/22 18:56> General Chief complaint: Fall Stated complaint: Head Injury Time Seen by Provider: 05/23/22 17:31 History of Present Illness HPI Narrative: This is a 52-year-old female with history of hiatal hernia, Carr's esophagus, who presents to the emergency department via ambulance for recent history of a mechanical fall on 05/18/2022 where she hit the back of her head and had a prolonged loss of consciousness. Patient's son was a witnessed who heard it in the other room and states it took minutes for her to wake up. She felt fine afterwards and this is never happened to her before. She had accidentally taken 2 of her tizanidine tabs. She presents emergency department via ambulance today for ongoing concussive symptoms with feeling lightheaded, having a mild headache, occasional dizziness, intermittently she feels like she has blurred vision and being more tired than usual. She denies any urinary symptoms but endorses left shoulder pain associated with her left-sided neck pain. Denies vomiting or incontinence. Related Data Home Medications Medication Instructions Recorded Confirmed ESOMEPRAZOLE SODIUM (NEXIUM) 20 mg PO QDAY ##0 03/06/12 Previous Rx's Medication Instructions Recorded ondansetron 4 mg disintegrating 4 mg sublingual Q4HP PRN ##15 01/10/16 tablet (Zofran ODT) ondansetron 4 mg disintegrating 4 mg PO Q8H PRN nausea and 03/06/22 tablet vomiting #15 tabs pantoprazole 40 mg tablet,delayed 40 mg PO DAILY #30 tabs 03/06/22 release (Protonix) lidocaine 5 % topical patch 1 patch topical DAILY PRN 05/23/22 muscle/neck pain #30 ea methocarbamol 500 mg tablet 500 mg PO Q8H PRN muscle pain #20 05/23/22 tabs Allergies Allergy/AdvReac Type Severity Reaction Status Date / Time meloxicam [From MOBIC] Allergy Intermediate NAUSEA Verified 03/06/22 10:10 Sulfa (Sulfonamide Allergy Intermediate HIVES, Verified 03/26/22 09:02 Antibiotics) NAUSEA [SULFA (SULFONAMIDE ANTIBIOTICS)] tetracycline [TETRACYCLINE] Allergy Intermediate NAUSEA Verified 03/06/22 10:10 iodine Allergy Mild Nausea Verified 03/26/22 09:02 hydromorphone [From Dilaudid] Allergy Nausea Verified 03/26/22 09:02 ibuprofen AdvReac Mild Nausea Verified 03/26/22 09:02 Review of Systems <LANA Kilpatrick - Last Filed: 05/23/22 18:56> Review of Systems ROS Unobtainable: All systems reviewed & are unremarkable except as noted in HPI and below Patient History <LANA Kilpatrick - Last Filed: 05/23/22 18:56> Social History household members: significant other Smoking Status: Former smoker alcohol intake: current Exam <LANA Kilpatrick - Last Filed: 05/23/22 18:56> Narrative Exam Narrative: Reviewed vitals signs and nursing notes. General: Pleasant, sitting upright, in no acute distress, well groomed, afebrile HEENT: symmetrical facial expressions, moist mucous membranes, neck is supple, EOMI, CV: regular rate and rhythm, warm extremities Respiratory: normal work of breathing, without tachypnea or hypoxia. GI: abdomen soft, non-distended, without CVA tenderness bilaterally. MSK: moves all extremities, no weakness, normal tone, ambulatory without deficit left shoulder trapezius tender to palpation, dense and turning her head to the right exacerbates this pain Skin: brisk capillary refill, without rash or wound Neuro: normal speech and cognition, A&O x3 Initial Vital Signs Initial Vital Signs: Vital Signs Pulse Rate 73 05/23/22 17:41 Pulse Oximetry 99 05/23/22 17:41 <Jacky Rivas DO - Last Filed: 05/23/22 19:51> Initial Vital Signs Initial Vital Signs: Vital Signs Pulse Rate 73 05/23/22 17:41 Pulse Oximetry 99 05/23/22 17:41 Course <LANA Kilpatrick - Last Filed: 05/23/22 18:56> Orders Ordered: ED Orders 05/23/22 17:27 CT head/brain wo con Stat 05/23/22 17:38 CT cervical spine wo con Stat Discontinued Medications Acetaminophen (Acetaminophen 325 Mg Tablet) 975 mg PO NOW ONE Stop: 05/23/22 17:45 Last Admin: 05/23/22 18:02 Dose: 975 mg Documented By: RB Cyclobenzaprine HCl (Cyclobenzaprine 10 Mg Prepack) 1 bottle MISC SEEINSTR ONE Stop: 05/23/22 18:10 Last Admin: 05/23/22 18:21 Dose: 1 bottle Documented By: RB Ketorolac Tromethamine (Ketorolac 30 Mg/Ml Vial) 15 mg IM NOW ONE Stop: 05/23/22 17:44 Last Admin: 05/23/22 18:02 Dose: 15 mg Documented By: RB Lidocaine (Lidocaine Patch 1 Each Adh..Patch) 1 each TOP NOW ONE Stop: 05/23/22 17:45 Last Admin: 05/23/22 18:03 Dose: 1 each Documented By: RB Methocarbamol (Methocarbamol 500 Mg Tablet) 500 mg PO NOW ONE Stop: 05/23/22 17:45 Last Admin: 05/23/22 18:03 Dose: 500 mg Documented By: RB Vital Signs Vital signs: Vital Signs - 8 hr 05/23/22 17:42 05/23/22 17:41 05/23/22 18:00 Temperature 98.9 F Pulse Rate 74 73 67 Respiratory Rate 17 Blood Pressure 167/100 H Pulse Oximetry 97 99 99 Oxygen Delivery Method Room Air 05/23/22 18:11 05/23/22 18:11 05/23/22 18:23 Temperature Pulse Rate 70 62 Respiratory Rate Blood Pressure 170/125 H Pulse Oximetry 99 99 Oxygen Delivery Method 05/23/22 18:23 Temperature Pulse Rate Respiratory Rate Blood Pressure 134/66 Pulse Oximetry Oxygen Delivery Method <Jacky Rivas DO - Last Filed: 05/23/22 19:51> Orders Ordered: ED Orders 05/23/22 17:27 CT head/brain wo con Stat 05/23/22 17:38 CT cervical spine wo con Stat Discontinued Medications Acetaminophen (Acetaminophen 325 Mg Tablet) 975 mg PO NOW ONE Stop: 05/23/22 17:45 Last Admin: 05/23/22 18:02 Dose: 975 mg Documented By: RB Cyclobenzaprine HCl (Cyclobenzaprine 10 Mg Prepack) 1 bottle MISC SEEINSTR ONE Stop: 05/23/22 18:10 Last Admin: 05/23/22 18:21 Dose: 1 bottle Documented By: RB Ketorolac Tromethamine (Ketorolac 30 Mg/Ml Vial) 15 mg IM NOW ONE Stop: 05/23/22 17:44 Last Admin: 05/23/22 18:02 Dose: 15 mg Documented By: RB Lidocaine (Lidocaine Patch 1 Each Adh..Patch) 1 each TOP NOW ONE Stop: 05/23/22 17:45 Last Admin: 05/23/22 18:03 Dose: 1 each Documented By: RB Methocarbamol (Methocarbamol 500 Mg Tablet) 500 mg PO NOW ONE Stop: 05/23/22 17:45 Last Admin: 05/23/22 18:03 Dose: 500 mg Documented By: RB Vital Signs Vital signs: Vital Signs - 8 hr 05/23/22 17:42 05/23/22 17:41 05/23/22 18:00 Temperature 98.9 F Pulse Rate 74 73 67 Respiratory Rate 17 Blood Pressure 167/100 H Pulse Oximetry 97 99 99 Oxygen Delivery Method Room Air 05/23/22 18:11 05/23/22 18:11 05/23/22 18:23 Temperature Pulse Rate 70 62 Respiratory Rate Blood Pressure 170/125 H Pulse Oximetry 99 99 Oxygen Delivery Method 05/23/22 18:23 Temperature Pulse Rate Respiratory Rate Blood Pressure 134/66 Pulse Oximetry Oxygen Delivery Method MDM - Head Injury <Adilene Salguero, [facility] - Last Filed: 05/23/22 18:56> ABG Data Interpretation: PROCEDURE:? CT HEAD/BRAIN WO CON ? INDICATIONS:? fall 4/8 w/prolonged LOC ? TECHNIQUE:? Noncontrast 4.5 mm thick angled axial sections acquired from the foramen magnum to the vertex, with coronal and sagittal reformats.? For radiation dose reduction, the following was used:? automated exposure control, adjustment of mA and/or kV according to patient size.? ? COMPARISON:? [facility], MR, MR ANGIO HEAD WITHOUT CONTRAST, 07/18/2020, 10:09. ? FINDINGS:? Image quality:? Excellent.? ? CSF spaces:? Basal cisterns are patent.? No extra-axial fluid collections.? Ventricles are normal in size and shape.? ? Brain:? No midline shift.? No intracranial masses or hemorrhage.? Gonzalez-white matter interface is normal.? ? Skull and face:? Calvarium and visualized facial bones are intact, without suspi cious lesions.? ? Sinuses:? Visualized sinuses and mastoids are clear.? ? IMPRESSION:? No acute intracranial abnormality. ? ? Approved by: Fox Howe M.D. on 05/23/2022 at 17:53? Imaging Data CT scan - head: Radiologist's Impression: PROCEDURE:? CT HEAD/BRAIN WO CON ? INDICATIONS:? fall 4/8 w/prolonged LOC ? TECHNIQUE:? Noncontrast 4.5 mm thick angled axial sections acquired from the foramen magnum to the vertex, with coronal and sagittal reformats.? For radiation dose reduction, the following was used:? automated exposure control, adjustment of mA and/or kV according to patient size.? ? COMPARISON:? [facility], MR, MR ANGIO HEAD WITHOUT CONTRAST, 07/18/2020, 10:09. ? FINDINGS:? Image quality:? Excellent.? ? CSF spaces:? Basal cisterns are patent.? No extra-axial fluid collections.? Ventricles are normal in size and shape.? ? Brain:? No midline shift.? No intracranial masses or hemorrhage.? Gonzalez-white matter interface is normal.? ? Skull and face:? Calvarium and visualized facial bones are intact, without suspicious lesions.? ? Sinuses:? Visualized sinuses and mastoids are clear.? ? IMPRESSION:? No acute intracranial abnormality. ? ? Approved by: Fox Howe M.D. on 05/23/2022 at 17:53? CT - cervical spine: Radiologist's Impression: PROCEDURE:? CT CERVICAL SPINE WO CON ? INDICATIONS:? lower neck pain after fall ? TECHNIQUE:? Noncontrast 3 mm thick sections acquired from the skull base to the T4 level.? Sagittal and coronal reformats were then constructed.? For radiation dose reduction, the following was used:? automated exposure control, adjustment of mA and/or kV according to patient size.? ? COMPARISON:? None. ? FINDINGS:? Image quality:? Excellent.? ? Bones:? No acute fractures or dislocations.? Visualized superior ribs are intact.? Multilevel disc space narrowing and degenerative endplate changes.? Multilevel vertebral joint and facet hypertrophy.? No high-grade narrowing of the bony spinal canal. ? Soft tissues:? Prevertebral soft tissues are normal in thickness.? No paravertebral hematomas.? No apical pneumothoraces.? ? IMPRESSION:? No acute cervical spine fracture or subluxation. ? Approved by: Fox Howe M.D. on 05/23/2022 at 17:55? MDM Narrative Medical decision making narrative: Chief Complaint: Head injury, not feeling well afterwards Multiple etiologies for patient's symptoms considered including, but not limited to: Post concussive syndrome, trapezius strain, intracranial hemorrhage, C- spine fracture, ligamental injury to cervical spine, vascular, close head injury I have independently reviewed the patient's vital signs and nursing notes as well as prior records if available. Pertinent Imaging reviewed: CT head is negative for intracranial hemorrhage or acute abnormality, CT C-spine is negative for acute fracture or other acute abnormality Patient was given information about concussions and encouraged to reduce her activity level until she starts feeling better. She likely has post-concussive syndrome with a left trapezius strain. She does not have any focal weakness, urinary changes, retention, incontinence, or systemic symptoms including fever, chills, nausea or vomiting. Will treat for postconcussive syndrome, closed head injury, whiplash with muscle strain/sprain. She was prescribed boxer's and discharge instructions were given to her family to help reduce her stimulation and activity level until she is symptom-free, give Tylenol every 6 hours 650 mg, and use heat and topical lidocaine patches as needed for the sprain/strain of her left trapezius. Social considerations that may affect disposition: none Questions are addressed and there is agreement with the plan and for follow-up. Patient is appropriate for outpatient management. Their symptoms improved over the course. Discharge Plan Departure Patient Disposition: Home Clinical Impression: Post-concussion syndrome, Strain of cervical portion of left trapezius muscle Closed head injury Qualifiers: Encounter type: initial encounter Qualified Code(s): S09.90XA - Unspecified injury of head, initial encounter Fall Qualifiers: Encounter type: initial encounter Qualified Code(s): W19.XXXA - Unspecified fall, initial encounter Instructions: Postconcussion Syndrome, DI for Whiplash, DI for Muscle Strain, Closed Head Injury Activity Restrictions/Additional Instructions: *You have been diagnosed with postconcussive syndrome related to your close head injury. Luckily there is no abnormal findings in your head or neck from your fall. No fractures, no evidence of anything dangerous. I want you to reduce your stimulation and your activity level until your symptoms start to improve. Please take Tylenol 650 mg every 6 hours as needed for your pain. For muscle pain, please use lidocaine patch and or a muscle relaxer to help you with this. You can apply heat, rest, and gentle massage. This will take a little bit danyell pineda to get better. Please try not to do more than your body will tolerate. *What to do: *Please continue to take your regular medications as directed. [ x] New medication prescriptions sent to your pharmacy: [[facility]] [ ] New medication written as a paper prescription [ ] No new medications given *Please follow up with your primary care provider in 2-3 days, call for an appointment. Let them know you were seen in the Emergency Department and that we asked that you be seen for follow-up. We will electronically transmit a record of today's note if your PCP is in our system *If you do not have a primary care provider please contact [phone] to establish care with one of the [facility] primary care providers. *Return to Emergency Department if you should have any new, worsening, or concerning symptoms, such as [fever greater than 101F, chills, worsening pain, persistent vomiting or other bothersome symptoms]. Prescriptions: New methocarbamol 500 mg tablet 500 mg PO Q8H PRN (Reason: muscle pain) Qty: 20 0RF lidocaine 5 % adhesive patch,medicated 1 patch topical DAILY PRN (Reason: muscle/neck pain) Qty: 30 0RF Rx Instructions: leave on most painful area for up to 12 hrs No Action ESOMEPRAZOLE SODIUM (NEXIUM) 20 mg PO QDAY Qty: 0 ondansetron [Zofran ODT] 4 MG tablet,disintegrating 4 mg Sublingual Q4HP PRNQty: 15 0RF pantoprazole [Protonix] 40 mg tablet,delayed release (DR/EC) 40 mg PO DAILY Qty: 30 0RF ondansetron 4 mg tablet,disintegrating 4 mg PO Q8H PRN (Reason: nausea and vomiting) Qty: 15 0RF Referrals: Ting Cardozo PA-C [Primary Care Provider] - Stand Alone Forms: Patient Portal/API <Jacky Rivas DO - Last Filed: 05/23/22 19:51> Cosign ED Attending Danaature Attestation: I was immediately available in the department for consultation. This documentation has been reviewed and I agree with assessment and plan. Supervised by Jacky Rivas, DO
--- NOTE | 2022-05-23 17:27 | DI.CT.S_ITS ---
PROCEDURE: CT HEAD/BRAIN WO CON INDICATIONS: fall 4/8 w/prolonged LOC TECHNIQUE: Noncontrast 4.5 mm thick angled axial sections acquired from the foramen magnum to the vertex, with coronal and sagittal reformats. For radiation dose reduction, the following was used: automated exposure control, adjustment of mA and/or kV according to patient size. COMPARISON: [facility], MR, MR ANGIO HEAD WITHOUT CONTRAST, 07/18/2020, 10:09. FINDINGS: Image quality: Excellent. CSF spaces: Basal cisterns are patent. No extra-axial fluid collections. Ventricles are normal in size and shape. Brain: No midline shift. No intracranial masses or hemorrhage. Gonzalez-white matter interface is normal. Skull and face: Calvarium and visualized facial bones are intact, without suspicious lesions. Sinuses: Visualized sinuses and mastoids are clear. IMPRESSION: No acute intracranial abnormality. Approved by: Fox Howe M.D. on 05/23/2022 at 17:53
--- NOTE | 2022-05-23 17:38 | DI.CT.S_ITS ---
PROCEDURE: CT CERVICAL SPINE WO CON INDICATIONS: lower neck pain after fall TECHNIQUE: Noncontrast 3 mm thick sections acquired from the skull base to the T4 level. Sagittal and coronal reformats were then constructed. For radiation dose reduction, the following was used: automated exposure control, adjustment of mA and/or kV according to patient size. COMPARISON: None. FINDINGS: Image quality: Excellent. Bones: No acute fractures or dislocations. Visualized superior ribs are intact. Multilevel disc space narrowing and degenerative endplate changes. Multilevel vertebral joint and facet hypertrophy. No high-grade narrowing of the bony spinal canal. Soft tissues: Prevertebral soft tissues are normal in thickness. No paravertebral hematomas. No apical pneumothoraces. IMPRESSION: No acute cervical spine fracture or subluxation. Approved by: Fox Howe M.D. on 05/23/2022 at 17:55
[2022-05-23 17:41] VITALS: PULSE 73; O2SAT 99
[2022-05-23 17:42] VITALS: BP 167/100; PULSE 74; RESP 17; TEMP 37.2; O2SAT 97; BMI 29.4
[2022-05-23 18:00] VITALS: PULSE 67; O2SAT 99
[2022-05-23] MEDS: ACETAMINOPHEN 325 MG TABLET 975 MG PO (18:02)
[2022-05-23] MEDS: KETOROLAC 30 MG/ML VIAL 15 MG IM (18:02)
[2022-05-23] MEDS: methocarbamoL 500 MG TABLET PO (18:03)
[2022-05-23] MEDS: LIDOCAINE PATCH 1 EACH ADH..PATCH TOP (18:03)
[2022-05-23 18:11] VITALS: BP 170/125; PULSE 70; O2SAT 99
[2022-05-23] MEDS: CYCLOBENZAPRINE 10 MG PREPACK 1 BOTTLE MISC (18:21)
[2022-05-23 18:23] VITALS: BP 134/66; PULSE 62; O2SAT 99
== END 2022-05-23 18:30 | disposition home or self-care (01) ==
PROVIDERS: Emergency Provider Nurse Practitioner Critical Care Medicine; Family Provider Physician Assistant; PCP Physician Assistant
DX: S09.8XXA Other specified injuries of head, initial encounter (principal); F07.81 Postconcussional syndrome; S29.012A Strain of muscle and tendon of back wall of thorax, initial encounter; W19.XXXA Unspecified fall, initial encounter
CPT/HCPCS: 70450; 72125; 96372; 99284; J1885

== ENCOUNTER 2022-06-23 17:33 | Emergency (ER) | payer MEDICAID, OTHER, SELFPAY ==
[2022-06-23] VITALS (10 sets, daily range): BP systolic 121–142; BP diastolic 65–78; PULSE 75–103; RESP 18–29; TEMP 36.6; O2SAT 96–99; BMI 29.5
--- NOTE | 2022-06-23 18:06 | ED.OVERDOSE ---
HPI - Overdose General Chief Complaint: Altered Mental Status Stated Complaint: Overdose Vicodin Time Seen by Provider: 06/23/22 17:38 Source: patient Mode of arrival: Ambulatory History of Present Illness HPI Narrative: Patient is a 52-year-old female who has chronic ongoing abdominal pain and back pain presenting today after taking a quarter friend's Vicodin in passing out about 30 minutes later. She did receive Narcan by EMS. Reports that she can not take ibuprofen secondary to Carr's esophagus and that upsets her stomach so he takes Tylenol. She is took Tylenol last at UTI noon the Vicodin prior culture had about 3.5 p.m.. He reports that her back pain is in the lower back it is tender touch similar to her previous back pain but a little bit worse today. She sometimes has numbness and tingling down her legs no change in bowel habits she is his chronic epigastric sees right upper quadrant pain which has been there since December. Nohemi denies any nausea or vomiting. Related Data Home Medications Medication Instructions Recorded Confirmed ESOMEPRAZOLE SODIUM (NEXIUM) 20 mg PO QDAY ##0 03/06/12 Previous Rx's Medication Instructions Recorded ondansetron 4 mg disintegrating 4 mg sublingual Q4HP PRN ##15 01/10/16 tablet (Zofran ODT) ondansetron 4 mg disintegrating 4 mg PO Q8H PRN nausea and 03/06/22 tablet vomiting #15 tabs pantoprazole 40 mg tablet,delayed 40 mg PO DAILY #30 tabs 03/06/22 release (Protonix) lidocaine 5 % topical patch 1 patch topical DAILY PRN 05/23/22 muscle/neck pain #30 ea methocarbamol 500 mg tablet 500 mg PO Q8H PRN muscle pain #20 05/23/22 tabs cephalexin 500 mg capsule 500 mg PO BID 4 days #8 caps 06/23/22 Allergies Allergy/AdvReac Type Severity Reaction Status Date / Time meloxicam [From MOBIC] Allergy Intermediate NAUSEA Verified 03/06/22 10:10 Sulfa (Sulfonamide Allergy Intermediate HIVES, Verified 03/26/22 09:02 Antibiotics) NAUSEA [SULFA (SULFONAMIDE ANTIBIOTICS)] tetracycline [TETRACYCLINE] Allergy Intermediate NAUSEA Verified 03/06/22 10:10 iodine Allergy Mild Nausea Verified 03/26/22 09:02 hydromorphone [From Dilaudid] Allergy Nausea Verified 03/26/22 09:02 ibuprofen AdvReac Mild Nausea Verified 03/26/22 09:02 Review of Systems Review of Systems ROS Unobtainable: All systems reviewed & are unremarkable except as noted in HPI and below Patient History Social History household members: significant other Smoking Status: Former smoker alcohol intake: current Smoking Status: Former smoker alcohol intake frequency: other Substance Use Type: marijuana and painkillers Exam Initial Vital Signs Initial Vital Signs: Vital Signs Pulse Rate 103 H 06/23/22 17:39 Respiratory Rate 21 06/23/22 17:39 Blood Pressure 127/76 06/23/22 17:39 GENERAL: Alert 52-year-old female HEENT: Head atraumatic,EOMI, pupils reactive, face symmetric, moist mucous membranes CARDIOVASCULAR: Regular rate and rhythm without murmurs, rubs or gallops. RESPIRATORY: Breath sounds equal bilaterally, no wheezes rales or rhonchi. ABDOMEN: Soft, mild tenderness epigastric and right upper quadrant region BACK: Lower lumbar pain bilateral paraspinal muscle reproducible with palpation EXTREMITIES: Normal range of motion, no clubbing or edema. Neurovascularly intact NEUROLOGICAL: Alert and oriented x4. SKIN: Warm, dry, no laceration, no petechiae, no rashes or lesions. Course Orders Ordered: ED Orders 06/23/22 17:35 Acetaminophen Stat Complete Blood Count AUTO DIFF Stat Comprehensive Metabolic Panel Stat Ethanol (ETOH) Stat Lactate (Lactic Acid) Stat Salicylate Stat Troponin & CK Cardiac Panel Stat 06/23/22 18:14 EKG-12 Lead Stat 06/23/22 18:34 Urinalysis and Microscopic Stat Urine Culture Stat Urine Drug Screen, Rapid Stat 06/23/22 18:44 CT abdomen pelvis w con Stat Discontinued Medications Cefazolin Sodium (Cephalexin 250 Mg Cap Prepack) 1 bottle MISC SEEINSTR ONE Stop: 06/23/22 20:28 Last Admin: 06/23/22 21:09 Dose: 1 bottle Documented By: JULIO Sodium Chloride (Normal Saline 0.9%) 1,000 mls @ 1,000 mls/hr IV BOLUS ONE Stop: 06/23/22 19:43 Last Infusion: 06/23/22 20:12 Dose: 0 mls/hr Documented By: Admin: 06/23/22 19:11 Dose: 1,000 mls/hr Documented By: WISAM Vital Signs Vital signs: Vital Signs - 8 hr 06/23/22 18:30 06/23/22 19:15 06/23/22 19:16 Pulse Rate 97 H Respiratory Rate Blood Pressure 139/65 Pulse Oximetry 98 99 06/23/22 19:16 06/23/22 19:30 06/23/22 19:30 Pulse Rate 96 H 94 H Respiratory Rate 18 23 Blood Pressure 142/76 H Pulse Oximetry 98 96 06/23/22 21:10 06/23/22 21:10 Pulse Rate 75 Respiratory Rate Blood Pressure 136/75 Pulse Oximetry 98 MDM - Overdose Lab Data 06/23/22 17:35 06/23/22 17:35 Labs: Lab Results 06/23/22 06/23/22 06/23/22 Range/Units 17:35 17:35 17:35 WBC 15.5 H (4.5-11.0) X10^3/uL RBC 4.53 (4.0-5.2) X10^6/uL Hgb 13.5 (12.0-16.0) g/dL Hct 40.6 (36-46) % MCV 89.5 (80-100) fL MCH 29.8 (26-34) PG MCHC 33.3 (30-36) % RDW 14.6 (11.6-14.8) % Plt Count 299 (150-400) X10^3/uL Neut % (Auto) 74.7 (50-75) % Lymph % (Auto) 17.6 L (25-40) % Elliott % (Auto) 7.1 (3-14) % Eos % (Auto) 0.2 L (2-4) % Baso % (Auto) 0.4 (0-2) % Neut # (Auto) 41042 H (9945-7445) /uL Lymph # (Auto) 2700 (0992-3364) /uL Elliott # (Auto) 1100 H (0-900) /uL Eos # (Auto) 0 (0-450) /uL Baso # (Auto) 100 (0-100) /uL Sodium 140 (137-145) mmol/L Potassium 3.5 (3.4-5.1) mmol/L Chloride 106 (98-107) mmol/L Carbon Dioxide 24 (22-32) mmol/L BUN 15 (7-17) mg/dL Creatinine 0.79 (0.52-1.04) mg/dL Estimated GFR > 60 (>60) mL/min BUN/Creatinine Ratio 19.0 (6-22) Glucose 205 H (70-100) mg/dL Lactate 2.9 H (0.7-2.1) mmol/L Calcium 8.9 (8.4-10.2) mg/dL Total Bilirubin 0.3 (0.2-1.3) mg/dL AST 26 (14-36) IU/L ALT 17 (<35) IU/L Alkaline Phosphatase 148 H (38-126) U/L Total Creatine Kinase (30-135) U/L CK-MB (CK-2) CK-MB (CK-2) Rel Index Troponin I (0.01-0.034) ng/mL Total Protein 8.0 (6.3-8.2) g/dL Albumin 4.7 (3.5-5.0) g/dL Globulin 3.3 (1.7-4.1) g/dL Albumin/Globulin Ratio 1.4 (1.0-2.8) Urine Color Urine Appearance Urine pH (4.5-8.0) Ur Specific [place] (1.000-1.035) Urine Protein (Negative) Urine Glucose (UA) (Negative) g/dL Urine Ketones (NEGATIVE) Urine Occult Blood (Negative) Urine Nitrate (Negative) Urine Bilirubin (NEGATIVE) Urine Urobilinogen (0.2) E.U./dL Ur Leukocyte Esterase (NEGATIVE) Urine RBC (0-5/HPF) Urine WBC (0-5/HPF) Ur Squamous Epith Cells (0-5/HPF) Amorphous Sediment Urine Bacteria (None) Urine Mucus (Negative) Ur Culture Indicated? Salicylates < 1.0 (<20) mg/dL U Opiates 300ng/mL cut (Negative) Ur Oxycodone Screen (Negative) Urine Methadone Screen (Negative) Acetaminophen < 10 (10-30) ug/mL Ur Barbiturates Screen (Negative) U Tricyclic Antidepress (Negative) Ur Phencyclidine Scrn (Negative) Ur Amphetamines Screen (Negative) U Methamphetamines Scrn (Negative) Ur MDMA Scrn (Ecstasy) (Negative) U Benzodiazepines Scrn (Negative) Urine Cocaine Screen (Negative) U Marijuana (THC) Screen (Negative) Ethyl Alcohol < 10 ( - 10) mg/dL 06/23/22 06/23/22 06/23/22 Range/Units 17:35 18:34 18:34 WBC (4.5-11.0) X10^3/uL RBC (4.0-5.2) X10^6/uL Hgb (12.0-16.0) g/dL Hct (36-46) % MCV (80-100) fL MCH (26-34) PG MCHC (30-36) % RDW (11.6-14.8) % Plt Count (150-400) X10^3/uL Neut % (Auto) (50-75) % Lymph % (Auto) (25-40) % Elliott % (Auto) (3-14) % Eos % (Auto) (2-4) % Baso % (Auto) (0-2) % Neut # (Auto) (5022-2921) /uL Lymph # (Auto) (4545-1490) /uL Elliott # (Auto) (0-900) /uL Eos # (Auto) (0-450) /uL Baso # (Auto) (0-100) /uL Sodium (137-145) mmol/L Potassium (3.4-5.1) mmol/L Chloride (98-107) mmol/L Carbon Dioxide (22-32) mmol/L BUN (7-17) mg/dL Creatinine (0.52-1.04) mg/dL Estimated GFR (>60) mL/min BUN/Creatinine Ratio (6-22) Glucose (70-100) mg/dL Lactate (0.7-2.1) mmol/L Calcium (8.4-10.2) mg/dL Total Bilirubin (0.2-1.3) mg/dL AST (14-36) IU/L ALT (<35) IU/L Alkaline Phosphatase (38-126) U/L Total Creatine Kinase 68 (30-135) U/L CK-MB (CK-2) TNP CK-MB (CK-2) Rel Index TNP Troponin I < 0.012 (0.01-0.034) ng/mL Total Protein (6.3-8.2) g/dL Albumin (3.5-5.0) g/dL Globulin (1.7-4.1) g/dL Albumin/Globulin Ratio (1.0-2.8) Urine Color Yellow Urine Appearance Slightly cloudy Urine pH 6.0 (4.5-8.0) Ur Specific [place] 1.025 (1.000-1.035) Urine Protein Trace H (Negative) Urine Glucose (UA) Negative (Negative) g/dL Urine Ketones Negative (NEGATIVE) Urine Occult Blood Trace-intact (Negative) Urine Nitrate Negative (Negative) Urine Bilirubin Negative (NEGATIVE) Urine Urobilinogen 0.2 (0.2) E.U./dL Ur Leukocyte Esterase Trace H (NEGATIVE) Urine RBC 0-1/hpf (0-5/HPF) Urine WBC 1-5/hpf (0-5/HPF) Ur Squamous Epith Cells 1-5 /hpf (0-5/HPF) Amorphous Sediment 1+ Urine Bacteria Few (2-10) H (None) Urine Mucus 1+ H (Negative) Ur Culture Indicated? Specimen cultured Salicylates (<20) mg/dL U Opiates 300ng/mL cut Positive H (Negative) Ur Oxycodone Screen Negative (Negative) Urine Methadone Screen Negative (Negative) Acetaminophen (10-30) ug/mL Ur Barbiturates Screen Negative (Negative) U Tricyclic Antidepress Negative (Negative) Ur Phencyclidine Scrn Negative (Negative) Ur Amphetamines Screen Negative (Negative) U Methamphetamines Scrn Negative (Negative) Ur MDMA Scrn (Ecstasy) Negative (Negative) U Benzodiazepines Scrn Negative (Negative) Urine Cocaine Screen Negative (Negative) U Marijuana (THC) Screen Positive H (Negative) Ethyl Alcohol ( - 10) mg/dL 06/23/22 Range/Units 20:10 WBC (4.5-11.0) X10^3/uL RBC (4.0-5.2) X10^6/uL Hgb (12.0-16.0) g/dL Hct (36-46) % MCV (80-100) fL MCH (26-34) PG MCHC (30-36) % RDW (11.6-14.8) % Plt Count (150-400) X10^3/uL Neut % (Auto) (50-75) % Lymph % (Auto) (25-40) % Elliott % (Auto) (3-14) % Eos % (Auto) (2-4) % Baso % (Auto) (0-2) % Neut # (Auto) (7007-2471) /uL Lymph # (Auto) (2241-7327) /uL Elliott # (Auto) (0-900) /uL Eos # (Auto) (0-450) /uL Baso # (Auto) (0-100) /uL Sodium (137-145) mmol/L Potassium (3.4-5.1) mmol/L Chloride (98-107) mmol/L Carbon Dioxide (22-32) mmol/L BUN (7-17) mg/dL Creatinine (0.52-1.04) mg/dL Estimated GFR (>60) mL/min BUN/Creatinine Ratio (6-22) Glucose (70-100) mg/dL Lactate 1.8 (0.7-2.1) mmol/L Calcium (8.4-10.2) mg/dL Total Bilirubin (0.2-1.3) mg/dL AST (14-36) IU/L ALT (<35) IU/L Alkaline Phosphatase (38-126) U/L Total Creatine Kinase (30-135) U/L CK-MB (CK-2) CK-MB (CK-2) Rel Index Troponin I (0.01-0.034) ng/mL Total Protein (6.3-8.2) g/dL Albumin (3.5-5.0) g/dL Globulin (1.7-4.1) g/dL Albumin/Globulin Ratio (1.0-2.8) Urine Color Urine Appearance Urine pH (4.5-8.0) Ur Specific [place] (1.000-1.035) Urine Protein (Negative) Urine Glucose (UA) (Negative) g/dL Urine Ketones (NEGATIVE) Urine Occult Blood (Negative) Urine Nitrate (Negative) Urine Bilirubin (NEGATIVE) Urine Urobilinogen (0.2) E.U./dL Ur Leukocyte Esterase (NEGATIVE) Urine RBC (0-5/HPF) Urine WBC (0-5/HPF) Ur Squamous Epith Cells (0-5/HPF) Amorphous Sediment Urine Bacteria (None) Urine Mucus (Negative) Ur Culture Indicated? Salicylates (<20) mg/dL U Opiates 300ng/mL cut (Negative) Ur Oxycodone Screen (Negative) Urine Methadone Screen (Negative) Acetaminophen (10-30) ug/mL Ur Barbiturates Screen (Negative) U Tricyclic Antidepress (Negative) Ur Phencyclidine Scrn (Negative) Ur Amphetamines Screen (Negative) U Methamphetamines Scrn (Negative) Ur MDMA Scrn (Ecstasy) (Negative) U Benzodiazepines Scrn (Negative) Urine Cocaine Screen (Negative) U Marijuana (THC) Screen (Negative) Ethyl Alcohol ( - 10) mg/dL Imaging Data CT scan - abdomen/pelvis: Radiologist's Impression: PROCEDURE:? CT ABDOMEN PELVIS W CON ? INDICATIONS:? epigastric pain low back pain syncope ? TECHNIQUE:? After the administration of and IV contrast, axial sections were acquired from the lung bases to the pubic symphysis.? Coronal and sagittal reformats were performed.? For radiation dose reduction, the following was used:? automated exposure control, adjustment of mA and/or kV according to patient size. ? COMPARISON:? Formerly [facility], CT, CT ABDOMEN PELVIS W CON, 03/06/2022, 13:02. ? FINDINGS:? Image quality:? Excellent.? ? Lung bases:? Unremarkable.? ? A small hiatal hernia is incidentally noted.? Heart:? No significant findings. ? ? ABDOMEN: Liver:? Unremarkable.? ? Gallbladder:? Removed.? ? Biliary ducts:? Unremarkable.? ? Pancreas:? Unremarkable.? ? Spleen:? Unremarkable.? ? Adrenal Glands:? Unremarkable.? ? Kidneys and Ureters:? Unremarkable.? ? ? Stomach and Bowel:? Scattered areas of mild to moderate colonic wall thickening can be seen, with mild surrounding inflammatory change. No dilated loops of small bowel are seen. A normal appendix is incidentally noted.? Peritoneum:? No abscess is seen.? No abnormal intraperitoneal fluid.? No free air.? ? Ventral Wall: ? No hernia.? Abdominal Nodes:? No retroperitoneal or mesenteric adenopathy by size criteria.? Vessels:? Aorta and inferior vena cava are normal in size.? ? PELVIS: Pelvic Organs: The uterus appears normal for age.? No adnexal masses are seen.? Bladder:? Unremarkable.? ? Pelvic Nodes: No enlarged lymph nodes.? Miscellaneous: No inguinal hernias are seen. ? ? ? Bones:? Focal lower lumbar spine degenerative changes are seen.? Milder degenerative changes are seen elsewhere.? ? ? IMPRESSION:? ? Scattered areas of colonic wall thickening can be seen.? Please correlate with potential causes of infectious or inflammatory colitis. ? No findings of perforation or abscess can be seen. ? No dilated loops of small bowel are seen. ? ? ? Additional findings:? Small hiatal hernia Cholecystectomy Normal appendix ? Dictated by: Lyle Condon M.D. on 06/23/2022 at 18:28 ? ? Approved by: Lyle Condon M.D. on 06/23/2022 at 18:32 ECG Data Interpretation: Normal sinus rhythm rate 92 VT interval 132 QRS 70 QTC 420 Q-wave noted in lead [address] changes intervals are within normal limits MDM Narrative Medical decision making narrative: Patient presenting with syncopal episode back pain stomach pain that is chronic after taking a pill from a friend. She reports that she took a quarter tablet of Vicodin 30 minutes later passed out and was given Narcan. She reports that this pill is not confirmed from a pill bottle. I am not personally convinced that it was a Vicodin. Urine drug screen is positive for opiates and marijuana. Tylenol and salicylates are negative. Her pain is chronic. He does have some leukocytes and bacteria in her urine with leukocytosis of 15. Not having painful frequent urination however will go ahead and treat. She is not had a fever. She also has lactate 2.9 which improved to 1.8 fluids only. She denies any suicidal or homicidal ideations. Took the pill purely for pain only. Naloxone at Discharge Meets criteria for naloxone at discharge?: No Discharge Plan Departure Patient Disposition: Home Clinical Impression: UTI (urinary tract infection) Instructions: DI for Urinary Tract Infection (UTI) Activity Restrictions/Additional Instructions: *You have been diagnosed with UTI *What to do: At this time he likely passed out from taking in opiate, not convinced it was Vicodin. You were found to have a minor bladder infection. *Continue to take medications as directed Keflex mg twice a day for 5 days--> sent to [facility] *Follow up with your primary care provider in 2-3 days or call [phone] *Return to ER if you should have worsening pain vomiting or any new, worsening or concerning symptoms Prescriptions: New cephalexin 500 mg capsule 500 mg PO BID 4 Days Qty: 8 0RF No Action ESOMEPRAZOLE SODIUM (NEXIUM) 20 mg PO QDAY Qty: 0 ondansetron [Zofran ODT] 4 MG tablet,disintegrating 4 mg Sublingual Q4HP PRNQty: 15 0RF pantoprazole [Protonix] 40 mg tablet,delayed release (DR/EC) 40 mg PO DAILY Qty: 30 0RF ondansetron 4 mg tablet,disintegrating 4 mg PO Q8H PRN (Reason: nausea and vomiting) Qty: 15 0RF methocarbamol 500 mg tablet 500 mg PO Q8H PRN (Reason: muscle pain) Qty: 20 0RF lidocaine 5 % adhesive patch,medicated 1 patch topical DAILY PRN (Reason: muscle/neck pain) Qty: 30 0RF Rx Instructions: leave on most painful area for up to 12 hrs Referrals: Ting Cardozo PA-C [Primary Care Provider] - Stand Alone Forms: Patient Portal/API
[2022-06-23 18:08] LABS: Add Manual Diff / Slide Review NO; Basophils Absolute Auto 100 /uL (0-100); Basophils Percent Auto 0.4 % (0-2); Eosinophils Absolute Auto 0 /uL (0-450); Eosinophils Percent Auto 0.2 % (2-4); Hematocrit 40.6 % (36-46); Hemoglobin 13.5 g/dL (12.0-16.0); Lymphocytes Absolute Auto 2700 /uL (1100-4500); Lymphocytes Percent Auto 17.6 % (25-40); Mean Corpuscular HGB Conc 33.3 % (30-36); Mean Corpuscular Hemoglobin 29.8 PG (26-34); Mean Corpuscular Volume 89.5 fL (80-100); Monocytes Absolute Auto 1100 /uL (0-900); Monocytes Percent Auto 7.1 % (3-14); Neutrophils Absolute Auto 11600 /uL (1500-7000); Neutrophils Percent Auto 74.7 % (50-75); Platelet Count 299 X10^3/uL (150-400); Red Blood Cell Count 4.53 X10^6/uL (4.0-5.2); Red Cell Distribution Width 14.6 % (11.6-14.8); White Blood Cell Count 15.5 X10^3/uL (4.5-11.0)
[2022-06-23 18:16] LABS: Lactate (Lactic Acid) 2.9 mmol/L (0.7-2.1)
[2022-06-23 18:18] LABS: Acetaminophen < 10 ug/mL (10-30); Alanine Aminotransferase 17 IU/L (<35); Albumin 4.7 g/dL (3.5-5.0); Albumin Globulin Ratio 1.4 (1.0-2.8); Alkaline Phosphatase 148 U/L (38-126); Aspartate Aminotransferase 26 IU/L (14-36); Bilirubin Total 0.3 mg/dL (0.2-1.3); Blood Urea Nitrogen 15 mg/dL (7-17); Calcium 8.9 mg/dL (8.4-10.2); Carbon Dioxide 24 mmol/L (22-32); Chloride 106 mmol/L (98-107); Estimated Glomerular Filt Rate > 60 mL/min (>60); Ethanol (ETOH) < 10 mg/dL; Globulin 3.3 g/dL (1.7-4.1); Glucose 205 mg/dL (70-100); HEMOLYSIS 40 (0-50); Potassium 3.5 mmol/L (3.4-5.1); Salicylate < 1.0 mg/dL (<20); Sodium 140 mmol/L (137-145)
[2022-06-23 18:37] LABS: Bilirubin Urine UA NEGATIVE (NEGATIVE); Color Urine UA YELLOW; Glucose Urine UA NEGATIVE (Negative); Ketones Urine UA NEGATIVE (NEGATIVE); Leukocyte Esterase Urine UA TRACE (NEGATIVE); Nitrite Urine UA NEGATIVE (Negative); Occult Blood Urine UA TRACE-INTACT (Negative); Protein Urine UA TRACE (Negative); Specific Gravity Urine UA 1.025 (1.000-1.035); Urobilinogen Urine UA 0.2 E.U./dL (0.2)
[2022-06-23 18:44] LABS: UR Morphine/Opiate cutoff 300 Positive (Negative); Ur Creatinine Normal (Normal); Ur Specific Gravity Normal (Normal); Urine Amphetamines Negative (Negative); Urine Cocaine Negative (Negative); Urine Methamphetamines Negative (Negative); Urine Tetrahydrocannabinol Positive (Negative); Urine pH Normal (Normal)
--- NOTE | 2022-06-23 18:44 | DI.CT.S_ITS ---
PROCEDURE: CT ABDOMEN PELVIS W CON INDICATIONS: epigastric pain low back pain syncope TECHNIQUE: After the administration of and IV contrast, axial sections were acquired from the lung bases to the pubic symphysis. Coronal and sagittal reformats were performed. For radiation dose reduction, the following was used: automated exposure control, adjustment of mA and/or kV according to patient size. COMPARISON: Formerly [facility], CT, CT ABDOMEN PELVIS W CON, 03/06/2022, 13:02. FINDINGS: Image quality: Excellent. Lung bases: Unremarkable. A small hiatal hernia is incidentally noted. Heart: No significant findings. ABDOMEN: Liver: Unremarkable. Gallbladder: Removed. Biliary ducts: Unremarkable. Pancreas: Unremarkable. Spleen: Unremarkable. Adrenal Glands: Unremarkable. Kidneys and Ureters: Unremarkable. Stomach and Bowel: Scattered areas of mild to moderate colonic wall thickening can be seen, with mild surrounding inflammatory change. No dilated loops of small bowel are seen. A normal appendix is incidentally noted. Peritoneum: No abscess is seen. No abnormal intraperitoneal fluid. No free air. Ventral Wall: No hernia. Abdominal Nodes: No retroperitoneal or mesenteric adenopathy by size criteria. Vessels: Aorta and inferior vena cava are normal in size. PELVIS: Pelvic Organs: The uterus appears normal for age. No adnexal masses are seen. Bladder: Unremarkable. Pelvic Nodes: No enlarged lymph nodes. Miscellaneous: No inguinal hernias are seen. Bones: Focal lower lumbar spine degenerative changes are seen. Milder degenerative changes are seen elsewhere. IMPRESSION: Scattered areas of colonic wall thickening can be seen. Please correlate with potential causes of infectious or inflammatory colitis. No findings of perforation or abscess can be seen. No dilated loops of small bowel are seen. Additional findings: Small hiatal hernia Cholecystectomy Normal appendix Dictated by: Lyle Condon M.D. on 06/23/2022 at 18:28 Approved by: Lyle Condon M.D. on 06/23/2022 at 18:32
[2022-06-23 18:45] LABS: Urine Barbiturates Negative (Negative); Urine Benzodiazepines Negative (Negative); Urine MDMA Negative (Negative); Urine Methadone Negative (Negative); Urine Oxycodone Negative (Negative); Urine Phencyclidine Negative (Negative); Urine Tricyclic Antidepressant Negative (Negative)
[2022-06-23 18:47] LABS: Appearance Urine UA Slightly Cloudy
[2022-06-23 18:48] LABS: Amorphous Sediment Urine 1+; Bacteria Urine Few (2-10); Culture Indicated Urine Specimen Cultured; Mucus Urine 1+ (Negative); RBC Urine 0-1/HPF (0-5/HPF); Squamous Epithelial Cell Urine 1-5 /HPF (0-5/HPF); WBC Urine 1-5/HPF (0-5/HPF)
[2022-06-23 18:58] LABS: Creatine Kinase 68 U/L (30-135)
[2022-06-23 19:11] LABS: Troponin I < 0.012 ng/mL (0.01-0.034)
[2022-06-23] MEDS: SODIUM CHLORIDE 0.9% 1,000 ML 1000 ML IV (19:11)
[2022-06-23 20:04] LABS: Reflexed Lactate in 2 Hours Y
[2022-06-23 20:35] LABS: Lactate 2HR (Lactic Acid Rflx) 1.8 mmol/L (0.7-2.1)
[2022-06-23] MEDS: cephALEXin 250 MG CAP PREPACK 1 BOTTLE MISC (21:09)
== END 2022-06-23 21:14 | disposition home or self-care (01) ==
PROVIDERS: Emergency Provider Emergency Medicine; Family Provider Physician Assistant; PCP Physician Assistant
DX: N39.0 Urinary tract infection, site not specified (principal); R10.13 Epigastric pain; M54.50 Low back pain, unspecified; F11.90 Opioid use, unspecified, uncomplicated
CPT/HCPCS: 36415; 74177; 80053; 80305; 80320; 80329; 81001; 82550; 83605; 84484; 85025; 87086; 93005; 96360; 99284; G0480

== ENCOUNTER → 2024-04-08 13:41 | Outpatient (CLI) | payer MEDICAID, SELFPAY ==
--- NOTE | 2024-04-08 13:43 | DI.RAD.S_ITS ---
PROCEDURE: XR CHEST 2V INDICATIONS: COUGH TECHNIQUE: 2 views of the chest were acquired. COMPARISON: None. FINDINGS: Surgical changes and devices: None. Lungs and pleura: Lungs are clear. No pleural effusions or pneumothorax. Mediastinum: Mediastinal contours are normal. Heart size is normal. Bones and chest wall: No suspicious bony abnormalities. Soft tissues appear unremarkable. IMPRESSION: No acute cardiopulmonary abnormality is seen. Dictated by: Fabien Reyes M.D. on 04/09/2024 at 12:33 Approved by: Fabien Reyes M.D. on 04/09/2024 at 12:33
== END ==
PROVIDERS: Family Provider Physician Assistant; PCP Physician Assistant; Referring Provider Nurse Practitioner Family; Visit Provider Nurse Practitioner Family
DX: R05.3 Chronic cough (principal)
CPT/HCPCS: 71046